=== PATIENT | male | born 1955 | race Caucasian/White ===

== ENCOUNTER 2016-11-20 08:50 | Inpatient (IN) | payer OTHER ==
[2016-11-10 10:36] VITALS: BMI 42.0
[2016-11-10 11:29] LABS: BASO % 0.4 %; BASO ABS # 0.03 K/uL (0-0.2); COMPLETE YES; EOS % 1.9 %; HEMATOCRIT 45.8 % (42-52); IG% 0.1 %; LYMPH % 21.3 %; LYMPH ABS # 1.72 K/uL (1.2-3.4); MEAN CELL VOLUME 88.6 fL (80-100); MEAN CORPUSCULAR HEMOGLOBIN 31.1 pg (25-34); MEAN CORPUSCULAR HGB CONC 35.2 g/dl (32-36); NEUT % 67.3 %; PLATELET COUNT 221 K/uL (130-400); RED BLOOD COUNT 5.17 M/uL (4.7-6.1); WHITE BLOOD COUNT 8.08 K/uL (4.8-10.8)
--- NOTE | 2016-11-10 11:42 | DIAGNOSTIC IMAGING REPORT ---
CHEST PREADMISSION(PA/LAT) CLINICAL HISTORY: Preoperative chest COMPARISON STUDY: No previous studies for comparison. FINDINGS: The heart is at the upper limits of normal in size. There is no failure. There is no lobar consolidation. There are right perihilar and left basilar atelectatic changes. A rounded density in the right hilar region, likely represents a vascular summation[ IMPRESSION: 1. No evidence of failure. No evidence of acute parenchymal consolidation 2. Minor basilar atelectasis 3. Rounded opacity at the right hilar level, likely representing a vascular summation Electronically signed by: Zachary Foreman M.D. 11/10/2016 11:40 AM Dictated Date/Time: 11/10/2016 11:39 AM
[2016-11-10 11:53] LABS: BUN/CREATININE RATIO 17.7 (10-20); CALCIUM 8.9 mg/dl (8.5-10.1); CREATININE 1.5 mg/dl (0.60-1.40); POTASSIUM 3.8 mmol/L (3.5-5.1)
[2016-11-10 11:57] LABS: PARTIAL THROMBOPLASTIN RATIO 1.1; PROTHROMBIN TIME (PATIENT) 10.8 SECONDS (9.0-12.0)
[2016-11-10 17:10] LABS: URINE APPEARANCE CLEAR (CLEAR); URINE COLOR YELLOW; URINE NITRITE NEG (NEG); URINE SPECIFIC GRAVITY 1.015 (1.000-1.030); UROBILINOGEN NEG (NEG)
[2016-11-10 17:32] LABS: URINE BILIRUBIN NEG (NEG)
[2016-11-10 21:07] LABS: MANUAL MICROSCOPIC REQUIRED? NO; REVIEW REQ? NO
--- NOTE | 2016-11-19 09:19 | HISTORY & PHYSICAL EXAMINATION ---
DATE OF ADMISSION: 11/20/2016 CHIEF COMPLAINT: Major complaint of back and lower extremity difficulty with weakness as well, pain 1 year in duration, worsening over time, failing conservative measures, associated weakness and occasional fall, gait abnormality with progressive neurological deficit. He has a disc herniation far lateral L2-3 with invagination on the 2 and 3 nerve roots. He is being preoped for lumbar spine decompression, possible fusion with Globus transition technology which is motion preserving technology, possibly interbody L2-3. PAST MEDICAL HISTORY: Positive for obesity, spine problems, prostate enlargement. No anesthesia issues, no cancer, liver, kidney negative. No diabetes mellitus, high cholesterol. PAST SURGICAL HISTORY: Disc removed from lumbar spine in 1983. ALLERGIES: SIMVASTATIN. MEDICATIONS: Aspirin, gabapentin, Advil, hydrochlorothiazide, testosterone gel, Ambien, Zetia. SOCIAL HISTORY: Nonsmoker, not ETOH user. Employed, works on a daily basis, mostly sedentary employment. REVIEW OF SYSTEMS: Denies any fever, sweats, chills. No bowel or bladder issues. Denies any blurred vision, double vision, tinnitus or vertigo. Denies head trauma. Denies asthma, wheezing, shortness of breath. Denies palpitations, chest pain. Denies nausea, vomiting, urgency, frequency, dysuria. Admits to back and lower extremity difficulty as described. OBJECTIVE: GENERAL: He is alert, oriented. He is 5 feet 11. He is 280 pounds. VITAL SIGNS: Blood pressure 130/80, pulse of 80, respiratory rate 16, temperature 97.4. HEAD, EYES, EARS, NOSE, AND THROAT: Pupils react to light and accommodation. Ear, nose and throat clear. CARDIAC: Normal S1, S2, no S3. LUNGS: Clear to auscultation. No rales, rhonchi or wheezing. ABDOMEN: Soft, nontender, bowel sounds present. NEUROLOGIC: Slight weakness to the lower extremities. Slight fasciculations, slight quadriceps decrease as well. Images demonstrate disc herniation lumbar spine far lateral at L2-L3. DISPOSITION: Includes lumbar spine laminectomy and discectomy, instrumentation possible tomorrow the at L2-L3 lumbar spine.
[~2016-11-20] VITALS: Ht 177.8 cm; Wt 134.4 kg
[~2016-11-20 08:50] MED LIST: ASPI81TA28 PO; CEFAZOLIN 3000 MG/65 ML D5W 65 ML IV SCH; EZET10TA63 PO; GABA-113 PO; HYDR-4079 PO; IBUP-1277 PO; LACTATED RINGER'S 1000ML IV SCH; LORA-741 PO; NSS 1000ML IV SCH; SILD1TAB39 PO; TERA5CAP PO; TRIAMTERENE HCTZ PO; ZOLP10TA PO
[2016-11-20 09:25] VITALS: BP 122/77; PULSE 20; TEMP 36.4; O2SAT 92; Ht 177.8 cm; Wt 134.4 kg
[2016-11-20] MEDS ORDERED: NEOSTIGMINE METHYLSULFATE 5 MG/5 ML SYR ONE (09:53)
[2016-11-20] MEDS ORDERED: FENTANYL CITRATE INJ 50 MCG/1 ML 2 ML VIAL ONE (09:53)
[2016-11-20] MEDS ORDERED: ROCURONIUM BROMIDE 10 MG/ML 5 ML VIAL ONE (09:53)
[2016-11-20] MEDS ORDERED: LIDOCAINE HCL 2% 2 ML VIAL (20MG/ML) ONE (09:53)
[2016-11-20] MEDS ORDERED: DEXAMETHASONE SOD INJ 4 MG/ML VIAL ONE (09:53)
[2016-11-20] MEDS ORDERED: GLYCOPYRROLATE INJ 0.2 MG/ML VIAL ONE (09:53)
[2016-11-20] MEDS ORDERED: ONDANSETRON INJ 2 MG/ML 2 ML VIAL ONE (09:53)
[2016-11-20] MEDS ORDERED: PROPOFOL IV EMULSION 10 MG/ML 20 ML VIAL IV ONE (09:53)
[2016-11-20] MEDS ORDERED: MIDAZOLAM HCL 1 MG/ML 2ML VIAL ONE (09:53)
[2016-11-20] MEDS ORDERED: BACITRACIN 50000 UNIT VIAL ONE (12:40)
[2016-11-20] MEDS ORDERED: THROMBIN FOR SOLN 20000 UNIT KIT ONE ×2 (12:40→13:09)
[2016-11-20] MEDS ORDERED: BUPIVACAINE/EPINEPHRINE 0.5% MPF 1:200,000 30 ML VIAL ONE ×2 (12:40→12:41)
[2016-11-20] MEDS ORDERED: VANCOMYCIN HCL 1000MG/20ML VIAL ONE (12:40)
[2016-11-20] MEDS ORDERED: GELATIN SPONGE SZ 100 ONE (12:40)
--- NOTE | 2016-11-20 12:53 | History & Physical Bridge Note ---
H&P Re-Evaluation Bridge Note: I have examined the patient, reviewed the History & Physical and in the interval since the performance of the History & Physical I have noted the following changes of clinical significance: No changes noted
[2016-11-20] MEDS ORDERED: CISATRACURIUM BESYLATE IV SOLN 2 MG/ML 10 ML VIAL ONE (13:48)
[2016-11-20] MEDS ORDERED: SUCCINYLCHOLINE CHLORIDE 20 MG/ML 10 ML VIAL IV ONE (14:07)
[2016-11-20] MEDS ORDERED: HYDROmorphone INJ 2 MG/ML SYR/VIAL ONE (14:51)
[2016-11-20] MEDS ORDERED: EpHEDrine SULFATE INJ 50 MG/ML AMP IV PRN (15:00)
[2016-11-20] MEDS ORDERED: FLUMAZENIL 0.1 MG/1 ML 10 ML VIAL IV PRN (15:00)
[2016-11-20] MEDS ORDERED: ONDANSETRON INJ 2 MG/ML 2 ML VIAL IV PRN ×2 (15:00→15:45)
[2016-11-20] MEDS ORDERED: LABETALOL HCL IV 5 MG/ML 20ML IV PRN (15:00)
[2016-11-20] MEDS ORDERED: ATROPINE SULFATE 0.1 MG/ML 5ML SYR IV PRN (15:00)
[2016-11-20] MEDS ORDERED: NALOXONE HCL 0.4 MG/1 ML VIAL/CARP IV PRN ×2 (15:00→16:00)
[2016-11-20] MEDS ORDERED: PROMETHAZINE HCL INJ 12.5 MG in SODIUM CHLORIDE 0.9% 50ML 50 ML IV PRN ×2 (15:00→15:45)
--- NOTE | 2016-11-20 15:13 | DIAGNOSTIC IMAGING REPORT ---
LUMBAR SPINE, INTRAOPERATIVE FLUOROSCOPY HISTORY: L2-L3 laminectomy and fusion. FLUOROSCOPY TIME: 11 seconds. FINDINGS: Intraoperative fluoroscopy was provided for the lumbar spine. A single fluoroscopic spot image was obtained. Exact level difficult to determine due to the spot image but likely represents the L2-L3 level where there are pedicle screws for a posterior decompression and fusion IMPRESSION: Fluoroscopy provided for a posterior decompression and fusion at L2-L3. Electronically signed by: Artur Mclean M.D. 11/20/2016 3:11 PM Dictated Date/Time: 11/20/2016 3:11 PM
[2016-11-20] MEDS ORDERED: SODIUM CHLORIDE 0.9% 1000ML 1,000 ML IV SCH ×2 (15:42→15:49)
[2016-11-20] MEDS ORDERED: METOCLOPRAMIDE HCL INJ 5 MG/ML 2 ML VIAL IV PRN (15:45)
[2016-11-20] MEDS ORDERED: LORAZEPAM 1 MG TAB PO PRN (15:45)
[2016-11-20] MEDS ORDERED: LORAZEPAM INJ 1 MG in SYRINGE 0 ML IV PRN (15:45)
[2016-11-20] MEDS ORDERED: MAGNESIUM HYDROXIDE SUSP 30 ML UDC PO PRN (15:45)
[2016-11-20] MEDS ORDERED: ACETAMINOPHEN 325 MG TAB PO PRN (15:45)
--- NOTE | 2016-11-20 15:45 | [facility] Post Operative Brief Note ---
Immediate Operative Summary Operative Date Nov 20, 2016. Pre-Operative Diagnosis disc herniation lumbar spine far lateral at L2-L3 Post-Operative Diagnosis disc herniation lumbar spine far lateral at L2-L3 Procedure(s) Performed Laminectomy L2-L3 with Globus transition motion preserving technology Surgeon Dr. Mckenzie Spa Consultant Surgeon(s) AC [place] Estimated Blood Loss 300ML Specimens none per surgeon Complication(s) None Disposition Recovery Room / PACU
[2016-11-20] MEDS ORDERED: HYDROmorphone HCL 0.5MG/ML 50 ML CASSETTE ONE (15:53)
[2016-11-20] MEDS ORDERED: LORAZEPAM 0.5 MG TAB PO SCH (16:00)
[2016-11-20] MEDS ORDERED: SILDENAFIL CITRATE 20 MG TAB PO SCH (16:00)
[2016-11-20] MEDS: HYDROmorphone INJ 1 MG/ML SYR IV PRN ×4 (16:00→16:18)
--- NOTE | 2016-11-20 16:34 | OPERATIVE REPORT ---
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 POSTOPERATIVE DIAGNOSES: Same. PROCEDURES: Lumbar spine laminectomy, L2-L3; diskectomy L2-L3; instrumentation L2-L3 and fusion, L2-L3, lumbar spine. SURGEON: Dr. Riley Mckenzie. ERP PROJECT MANAGER: AC Hobbs COMPLICATIONS: Zero. BLOOD LOSS: 300. IMPLANTS USED: By the Liftago. Sponge and needle count correct at the close of the procedure. DESCRIPTION OF PROCEDURE: The patient was taken to the operating room, a general intubated, anesthetic provided to the patient, placed prone, shaved, scrubbed, prepped and draped sterile. We used C-arm guidance. We came right into the L2-L3 interval, dissecting the soft tissue in the same plane. We were putting in deep self-retaining retractor. He is a big individual and quite overweight. The depth was quite significant. We did a laminectomy to L2-L3 interval. We preserved all structures on the right hand side. We decompressed all structures on the left hand side. We found the disk and we did a formal diskectomy. I worked very diligently protecting the nerve root, getting any type of disk material free and completed the foraminotomy. I tried to bring the disk material into the interspace, so I could do a complete diskectomy. I was pleased with the decompression at this point in time. We then instrumented the spine, safely getting pedicle screws at 2 and pedicle screws at 3 of the lumbar elements. I was pleased with the positioning and depth and length of the screw fixation. Instead of doing a solid anitha, we used a Globus transition type system, which gave it a little flexibility. This was placed on both sides. Locked and irrigated. We did bone graft out over the left hand side. I felt that it may give him some minor stability with bone grafting at this level. We then irrigated and closed over Hemovac drain and vancomycin powder, staple gun on the skin. Sterile dressing applied. The patient returned to PACU stable. No apparent complications with the surgical procedure. Sponge and needle count correct. I attest to the content of the Intraoperative Record and any orders documented therein. Any exceptio ns are noted below.
[2016-11-20 17:15] VITALS: BP 110/70; PULSE 61; TEMP 37.2; O2SAT 95
--- NOTE | 2016-11-20 17:15 | Anesthesiology Progress Note ---
Anesthesia Post Op Note Date & Time Nov 20, 2016 at 17:15 Vital Signs Pain Intensity: 6 Vital Signs Past 12 Hours Date Time Temp Pulse Resp B/P Pulse Ox O2 Delivery O2 Flow Rate FiO2 11/20/16 17:00 55 13 115/61 94 Nasal Cannula 4 11/20/16 16:45 37.1 61 17 122/65 96 Nasal Cannula 4 11/20/16 16:35 56 12 119/71 95 Nasal Cannula 4 11/20/16 16:25 59 13 128/78 98 Nasal Cannula 4 11/20/16 16:15 67 12 136/77 98 Nasal Cannula 4 11/20/16 16:05 68 24 147/73 97 Mask 10 11/20/16 15:55 70 13 152/92 98 Mask 10 11/20/16 15:48 36.9 66 16 143/81 98 Mask 10 11/20/16 09:25 36.4 20 20 122/77 92 Room Air Notes Mental Status: alert / awake / arousable, participated in evaluation Pt Amnestic to Procedure: Yes Nausea / Vomiting: adequately controlled Pain: adequately controlled Airway Patency, RR, SpO2: stable & adequate BP & HR: stable & adequate Hydration State: stable & adequate Anesthetic Complications: no major complications apparent
[2016-11-20] MEDS: HYDROmorphone HCL 0.5MG/ML 50 ML CASSETTE IV PRN ×2 (17:18→23:02)
[2016-11-20 17:42] VITALS: BP 118/67; PULSE 65; TEMP 37; O2SAT 98
[2016-11-20 18:15] VITALS: BP 119/72; PULSE 69; TEMP 36.8; O2SAT 94
[2016-11-20 19:16] VITALS: BP 115/67; PULSE 73; TEMP 36.7; O2SAT 95
[2016-11-20] MEDS: KETOROLAC TROMETHAMINE 30 MG/ML VIAL IV SCH (19:48)
--- NOTE | 2016-11-20 20:24 | Family Medicine Progress Note ---
Progress Note Date of Service Nov 20, 2016. Subjective Pt evaluation today including: conversation w/ patient, conversation w/ family , chart review, lab review The patient was seen and examined at bedside. at bedside reports that the pt's oxygen saturation dips into the 70s and 80s when the patient is sleeping. Patient is complaining of back pain - without any radicular complaints. Patient is resting comfortably in bed. Eating well. Patient has a soni catheter draining yellow urine. Plan of care was described to the patient and SO and all questions were answered. Constitutional: No chills, No fever Respiratory: No cough, No shortness of breath, No sputum, No wheezing Cardiovascular: No chest pain Objective Physical Exam General Appearance: WD/WN, no apparent distress, + obese Respiratory/Chest: chest non-tender, lungs clear, normal breath sounds, no respiratory distress, no accessory muscle use Cardiovascular: regular rate, rhythm, no edema, no gallop, no JVD, no murmur Abdomen: normal bowel sounds, non tender, soft, no organomegaly, + pertinent finding Extremities: normal range of motion, non-tender, no pedal edema Neurologic/Psychiatric: no motor/sensory deficits, alert, normal mood/affect, oriented x 3 Assessment and Plan Pt is a 61M with a PMHx of Menieres disease, disc herniation and obesity status post Lumbar Spine Decompression on 11/20/[address] Mckenzie. Lumbar Spine Decompression c/w Hydromorphine 1mg Q3H + 1.5mg IV Q3H PRN for breakthrough. c/w Gabapentin 900mg TID. c/w Cefazolin and Vanco. Consider discontinuing on discharge. Decreased oxygen Saturation while sleeping - According to pt snores, has constant apneic episodes at night with gasping. Has never been tested for sleep apnea. - CPAP initial set up was ordered. Meniere's Disease - c/w Triamcinolone tomorrow AM. HLD - c/w ezetemibe c/w Aspirin 81mg daily HTN - c/w HCTZ 25mg daily. BPH - c/w Terazosin Anxiety - c/w Ativan 1mg Q6H PRN DVT Proph: SCDs Dispo: Full Code Resident Physician Supervision Note: I interviewed and examined the patient. Discussed with Dr. Paz and agree with findings and plan as documented in the note. Any exceptions or clarifications are listed here: None Documented By: Tera Garcia feeling OK. no sob. notes that current breathing is typical for him when he sleeps - notes ongoing for years but recently she was getting more worried that he'd need evaluated for SANJANA. vitals noted, nad breathing unlabored - awakens then falls asleep, snores some, no pallor or icterus a/p snoring - strongly suspect SANJANA. meniere's - home meds (will have to hold diuretics if any sign of volume instability - but none thus far) otherwise as above Resident Involvement: Resident Care Provided Care Provided: Adult Hospital Medicine
[2016-11-20] MEDS ORDERED: TRIAMTERENE HCTZ PO SCH (21:00)
[2016-11-20] MEDS ORDERED: ZOLPIDEM TARTRATE 10 MG TAB PO SCH (21:00)
[2016-11-20] MEDS ORDERED: TRIAMTERENE 50 MG CAP PO SCH (21:00)
[2016-11-20] MEDS: EZETIMIBE 10MG TAB PO SCH (21:04)
[2016-11-20] MEDS: GABAPENTIN 300 MG CAP PO SCH (21:04)
[2016-11-20] MEDS: ASPIRIN 81 MG ECTAB PO SCH (21:04)
[2016-11-20] MEDS: CEFAZOLIN IV 2,000 MG in DEXTROSE 5% 50ML 50 ML IV SCH (22:08)
[2016-11-20 22:55] VITALS: BP 121/73; PULSE 67; TEMP 36.6; O2SAT 96
[2016-11-21] VITALS (8 sets, daily range): BP systolic 104–132; BP diastolic 57–78; PULSE 64–81; TEMP 36.5–37.2; O2SAT 90–97
[2016-11-21] MEDS: KETOROLAC TROMETHAMINE 30 MG/ML VIAL IV SCH ×2 (01:51→02:00)
[2016-11-21] MEDS: CEFAZOLIN IV 2,000 MG in DEXTROSE 5% 50ML 50 ML IV SCH ×2 (05:36→13:53)
[2016-11-21] MEDS ORDERED: BISACODYL 5 MG TABEC PO PRN (06:00)
[2016-11-21] MEDS ORDERED: DC PCA ONE (06:00)
[2016-11-21] MEDS ORDERED: BISACODYL 10 MG SUPP PR PRN (06:00)
[2016-11-21] MEDS ORDERED: HYDROmorphone INJ 1 MG/ML SYR IV PRN (06:00)
[2016-11-21] MEDS ORDERED: OXYCODONE/ACETAMINOPHEN 5-325 TAB PO PRN (06:00)
[2016-11-21] MEDS ORDERED: HYDROmorphone INJ 2 MG/ML SYR/VIAL IV PRN (06:00)
[2016-11-21 06:18] LABS: HEMATOCRIT 41.8 % (42-52); MEAN CORPUSCULAR HEMOGLOBIN 29.7 pg (25-34); MEAN CORPUSCULAR HGB CONC 33.7 g/dl (32-36); MEAN PLATELET VOLUME 10.4 fL (7.4-10.4); PLATELET COUNT 232 K/uL (130-400); RED BLOOD COUNT 4.75 M/uL (4.7-6.1); WHITE BLOOD COUNT 14.67 K/uL (4.8-10.8)
[2016-11-21 06:45] LABS: BUN/CREATININE RATIO 22.9 (10-20); CALCIUM 8.1 mg/dl (8.5-10.1); CREATININE 1.7 mg/dl (0.60-1.40); POTASSIUM 4.6 mmol/L (3.5-5.1)
[2016-11-21] MEDS ORDERED: NURSING VERBAL MED ORDER ONE (07:15)
--- NOTE | 2016-11-21 07:45 | ORTHOPEDICS PROGRESS NOTE ---
DATE: 11/21/2016 Alert, oriented, minimal complaints of pain, some soreness, no radicular pain. Vital signs stable. 41.8 hematocrit. Moves extremities. ASSESSMENT: Status post lumbar spine surgery. Doing well short run. DISPOSITION: Instructions, precautions, education. Up and ambulatory today. Potentially home tomorrow the .
--- NOTE | 2016-11-21 07:52 | Progress Note ---
Subjective Date of Service: Nov 21, 2016. Subjective pt feels well no active complaints, has concerns that he may have sleep apnea Review of Systems Constitutional: No chills, No fever Cardiac: No chest pain, No edema Abdomen: No diarrhea, No nausea, No pain, No vomiting Musculoskeletal: + muscle pain Male : No dysuria, No urinary frequency Psychiatric: No anhedonism, No depression symptoms Objective Vital Signs Date Time Temp Pulse Resp B/P Pulse Ox O2 Delivery O2 Flow Rate FiO2 11/21/16 07:05 Room Air 11/21/16 05:39 81 91 Room Air 11/21/16 04:05 36.8 64 18 132/78 97 Nasal Cannula 4.0 11/21/16 00:40 Nasal Cannula 4.0 11/20/16 22:55 36.6 67 18 121/73 96 Nasal Cannula 4.0 11/20/16 19:16 36.7 73 16 115/67 95 Nasal Cannula 4.0 11/20/16 18:15 36.8 69 18 119/72 94 Nasal Cannula 4.0 11/20/16 17:42 37.0 65 14 118/67 98 Nasal Cannula 4.0 11/20/16 17:15 95 Nasal Cannula 4.0 11/20/16 17:15 95 Nasal Cannula 4.0 11/20/16 17:15 37.2 61 18 110/70 95 Nasal Cannula 4.0 11/20/16 17:00 55 13 115/61 94 Nasal Cannula 4 11/20/16 16:45 37.1 61 17 122/65 96 Nasal Cannula 4 11/20/16 16:35 56 12 119/71 95 Nasal Cannula 4 11/20/16 16:25 59 13 128/78 98 Nasal Cannula 4 11/20/16 16:15 67 12 136/77 98 Nasal Cannula 4 11/20/16 16:05 68 24 147/73 97 Mask 10 11/20/16 15:55 70 13 152/92 98 Mask 10 11/20/16 15:48 36.9 66 16 143/81 98 Mask 10 11/20/16 09:25 36.4 20 20 122/77 92 Room Air Physical Exam General Appearance: WD/WN, + mild distress Neck: supple, no JVD Respiratory/Chest: chest non-tender, lungs clear, normal breath sounds Cardiovascular: regular rate, rhythm, no murmur Abdomen: normal bowel sounds, non tender, soft Extremities: no pedal edema, no calf tenderness Neurologic/Psychiatric: alert, oriented x 3 Laboratory Results Last 24 Hours Test 11/21/16 06:08 White Blood Count 14.67 K/uL Red Blood Count 4.75 M/uL Hemoglobin 14.1 g/dL Hematocrit 41.8 % Mean Corpuscular Volume 88.0 fL Mean Corpuscular Hemoglobin 29.7 pg Mean Corpuscular Hemoglobin Concent 33.7 g/dl RDW Standard Deviation 42.4 fL RDW Coefficient of Variation 13.1 % Platelet Count 232 K/uL Mean Platelet Volume 10.4 fL Sodium Level 138 mmol/L Potassium Level 4.6 mmol/L Chloride Level 103 mmol/L Carbon Dioxide Level 23 mmol/L Anion Gap 12.0 mmol/L Blood Urea Nitrogen 39 mg/dl Creatinine 1.70 mg/dl Est Creatinine Clear Calc Drug Dose 64.6 ml/min Estimated GFR () 50.0 Estimated GFR (Non- 43.2 BUN/Creatinine Ratio 22.9 Random Glucose 136 mg/dl Calcium Level 8.1 mg/dl Assessment and Plan Pt is a 61M with a PMHx of Menieres disease, disc herniation status post Lumbar Spine Decompression on 11/20/[address] Mckenzie. Decreased oxygen Saturation while sleeping - According to pt snores, has constant apneic episodes at night with gasping. Has never been tested for sleep apnea. - CPAP initial set up was ordered, maybe from anesthesia, will follow and consider nocturnal hypoxia testing. Meniere's Disease Triamterine HTN HCTZ 25mg daily. BPH -Terazosin DVT Proph: SCDs
--- NOTE | 2016-11-21 08:09 | Anesthesiology Progress Note ---
Anesthesia Post Op Note Date & Time Nov 21, 2016 at 08:08 Vital Signs Pain Intensity: 5.0 Vital Signs Past 12 Hours Date Time Temp Pulse Resp B/P Pulse Ox O2 Delivery O2 Flow Rate FiO2 11/21/16 07:05 Room Air 11/21/16 05:39 81 91 Room Air 11/21/16 04:05 36.8 64 18 132/78 97 Nasal Cannula 4.0 11/21/16 00:40 Nasal Cannula 4.0 11/20/16 22:55 36.6 67 18 121/73 96 Nasal Cannula 4.0 Notes Mental Status: alert / awake / arousable, participated in evaluation Pt Amnestic to Procedure: Yes Nausea / Vomiting: adequately controlled Pain: adequately controlled Airway Patency, RR, SpO2: stable & adequate BP & HR: stable & adequate Hydration State: stable & adequate Anesthetic Complications: no major complications apparent
[2016-11-21] MEDS: POLYETHYLENE (MIRALAX) 17 GM PACK PO SCH (08:44)
[2016-11-21] MEDS: OXYCODONE/ACETAMINOPHEN 5-325 TAB PO PRN ×3 (08:45→21:21)
[2016-11-21] MEDS: GABAPENTIN 300 MG CAP PO SCH ×3 (08:45→21:22)
[2016-11-21] MEDS ORDERED: TRIAMTERENE 50 MG CAP PO SCH (09:00)
[2016-11-21] MEDS ORDERED: HYDROCHLOROTHIAZIDE 25 MG TAB PO SCH (09:00)
[2016-11-21] MEDS: TRIAMTERENE PO SCH ×2 (10:03→21:23)
[2016-11-21] MEDS: HCTZ PO SCH ×2 (10:03→21:23)
[2016-11-21] MEDS: EZETIMIBE 10MG TAB PO SCH (21:22)
[2016-11-21] MEDS: ASPIRIN 81 MG ECTAB PO SCH (21:22)
[2016-11-22] MEDS: OXYCODONE/ACETAMINOPHEN 5-325 TAB PO PRN ×2 (04:35→09:57)
[2016-11-22 06:02] LABS: HEMATOCRIT 36.2 % (42-52); MEAN CELL VOLUME 87.4 fL (80-100); MEAN CORPUSCULAR HGB CONC 34.3 g/dl (32-36); MEAN PLATELET VOLUME 10.5 fL (7.4-10.4); PLATELET COUNT 184 K/uL (130-400); RED BLOOD COUNT 4.14 M/uL (4.7-6.1); WHITE BLOOD COUNT 12.14 K/uL (4.8-10.8)
[2016-11-22 06:36] LABS: BUN/CREATININE RATIO 23.7 (10-20); CALCIUM 7.7 mg/dl (8.5-10.1); CREATININE 1.4 mg/dl (0.60-1.40); POTASSIUM 3.4 mmol/L (3.5-5.1)
--- NOTE | 2016-11-22 07:37 | Discharge Instructions ---
Discharge Instructions Admission Reason for Admission: Spinal Stenosis, Lumbar Iv Disc Displacement Discharge Discharge Diagnosis / Problem: stenosis Discharge Goals Goal(s): Improve function Activity Recommendations Activity Limitations: as noted below Lifting Limitations: until after follow-up appointment Exercise/Sports Limitations: until after follow-up appointment May Resume Sexual Activity: after follow-up appointment Shower/Bathe: keep incision dry . Instructions / Follow-Up Instructions / Follow-Up MEDICATIONS: Please take your prescriptions as instructed at your pre-op appointment. SPECIAL CARE: The following information is intended to answer some of the common questions and concerns regarding your surgery. Each patient is an individual and receives individual counselling throughout the course of treatment, from diagnosis to surgery all the way through recovery. What follows is not an exhaustive list, but should be a useful guide to some of the common questions and concerns patients have regarding their surgeries. These are not provided to keep you from calling us; rather, they give you something accurate and concrete to reference as you recover from your procedure. If you need us, we are available to you. As always, if you are not sure about something, call us at [phone]. MEDICAL EMERGENCIES: For these conditions, call 911 or go to your local hospital-based Emergency Department - not [facility] or equivalent. * Paralysis * Severe chest pain or difficulty breathing * Swelling or redness of either leg Spine procedures can be rather complex and though complications are rare, they do occur. In such cases, effective advice regarding emergency situations cannot always be addressed over the telephone. You may be referred to the emergency department for more effective management of your problem. Activity Limitations: It is important to give your body time to heal, so please limit your activities : * In general, don't do anything that moves your spine too much. You should avoid contact sports, twisting or heavy lifting while you recover. * 5-10 pounds is all you should attempt to lift. * You should not plan on driving for approximately 3 weeks and you should avoid traveling more than 30-45 minutes at a time. Longer trips should be broken down with walking breaks spaced appropriately. * Physical therapy is not usually required. * Walking and good posture practices will help you recover and regain your function. * Avoid straining or sudden changes in position. * In general, the goal is to take it easy and recover. Don't cause any new problems. Just relax. Showers: * Do not take a bath, use a Jacuzzi or hot tub or otherwise submerge your incision. * It is usually safe to take a shower 4-5 days after your surgery. * Your incision does not require any special creams or ointments. * Simply clean it with soap and water, dry and re-dress with a clean bandage afterwards. Incision: * Keep incision clean, dry and protected until your first follow-up appointment. * Some amount of drainage and redness is normal. Any drainage should be fairly clear and not have a foul odor. * If you feel anything is wrong or you have excessive drainage, please call us. * Your stitches and kim will be removed 10-14 days after your surgery. At the time of your first post-op visit. * Neck surgeries are typically closed with a suture underneath the skin. The steri-strips over the incision should be maintained until we see you in the office. Bracing: * You may be provided with a back or neck brace to encourage good posture and prevent injury. It will remind you not to do too much as you heal and will alert others to the fact that you have had a surgery. * Back braces may be removed for showers and when you are resting at home. They must be worn when you are walking around for any period of time or for travel. * For neck surgery, you will likely be provided with two cervical collars. The soft collar (Underwood or foam rubber) is worn most commonly throughout the day and while sleeping. The plastic collar (provided at the hospital) is for showering/bathing. * Except while eating, collars should remain in place. More specifically, bracing is provided for a purpose and should be worn. * Please obtain your brace or collars prior to your operation and bring them to the hospital with you on the day of surgery. * You should also bring your collars to your post-op appointment with Dr. Mckenzie. You should always take good care of your body and practice healthy habits, especially following surgery. You should: * Follow your doctor's treatment plan * Sit and stand properly with good posture (ears over shoulders, shoulders over hips) Don't slouch * Learn to lift correctly * Exercise regularly (low-impact aerobic exercise is especially good, but check with your doctor first) * Generally, be up and walking for 5-10 minutes at a time at least 3-4 times per day from the day you get home * Increasing walking to tolerance until you can walk for 20-30 minutes at a time * Attain and maintain a healthy body weight * Eat healthy foods ( a well-balanced, low-fat diet rich in fruits and vegetables) and get enough calcium * Avoid excessive use of alcohol When to call our office - If you notice any of the following: * Increased pain not relieve by pain medicine * Fevers greater then 100 degrees F, chills or flu symptoms * Increased redness around incision * Drainage from the incision that is not clear * Any foul smelling drainage * Swelling or fluid collection beneath the skin Miscellaneous: * In the hospital, you may be given a walker or cane for support while walking. These are temporary needs and are intended to prevent injuries due to falls. You may discontinue them when you feel strong and steady enough on your feet. * Sleep in a comfortable position. We find that many patients find a lounge chair or recliner with several pillows to be beneficial in the early post-operative period. * The support stockings should be used for 7-10 days and may be discontinued when you are back to walking more and conducting usual household activities. No problem is insignificant. We are here to help you and get you well. Contact us at [phone]. Definitions: Foraminotomy: If part of the disc or a bone spur (osteophyte) is pressing on a nerve as it leaves the vertebra (through an exit called the foramen), a foraminotomy may be done. Otomy means "to make an opening." A foraminotomy is making the opening of the foramen larger, so the nerve can exit without being compressed. Laminotomy: Similar to the foraminotomy, a laminotomy makes a larger opening, this time in your bony plate protecting your spinal canal and spinal cord (the lamina). The lamina may be pressing on your nerve, so the surgeon may make more room for the nerves using a laminotomy. Laminectomy: Sometimes, a laminotomy is not sufficient. The surgeon may need to remove all or part of the lamina. This procedure is called a laminectomy. This can often be done at many levels without any harmful effects. Current Hospital Diet Patient's current hospital diet: Regular Diet Discharge Diet Recommended Diet: Regular Diet Fluid Restriction: None Procedures Procedures Performed: Laminectomy L2-L3 with Globus transition motion preserving technology Pending Studies Studies pending at discharge: no Medical Emergencies . Who to Call and When: Medical Emergencies: If at any time you feel your situation is an emergency, please call 911 immediately. . Non-Emergent Contact Non-Emergency issues call your: Surgeon Call Non-Emergent contact if: you have any medication questions . "Provider Documentation" section prepared by Riley Mckenzie. VTE Core Measure Inpt VTE Proph given/why not?: Treatment not indicated
[2016-11-22 08:17] VITALS: BP 114/72; PULSE 72; TEMP 37; O2SAT 93
[2016-11-22 08:36] VITALS: BP 114/72; PULSE 72; TEMP 37; O2SAT 93
[2016-11-22] MEDS: POLYETHYLENE (MIRALAX) 17 GM PACK PO SCH (09:00)
[2016-11-22] MEDS: GABAPENTIN 300 MG CAP PO SCH (09:56)
[2016-11-22] MEDS ORDERED: OXGN (10:26)
[2016-11-22 10:27] VITALS: O2SAT 93
--- NOTE | 2016-11-22 11:16 | DISCHARGE SUMMARY ---
DATE OF DISCHARGE: 11/22/2016. SUBJECTIVE: Moderate complaints of back pain, some lower extremity difficulty. Denies fevers, sweats or chills. OBJECTIVE: Vital signs stable, alert, oriented. Hematocrit 36.2. Wound clean. ASSESSMENT: Status post lumbar spine surgery. DISPOSITION: We will get Mr. Sánchez home today. Change his dressing. He has medications on the chart. He has a walker with wheels as well. He has instructions on the chart and from our office. We will get him home later today. We should see him back for follow-up examination in 10-12 days in the office. He is to be careful with bending, stooping, and lifting.
--- NOTE | 2016-11-22 17:21 | Progress Note ---
Subjective Date of Service: Nov 22, 2016. Subjective pt is about to be discharged discussed the nocturnal oxymetry study and RX hs oxygen, recommended to get outpt eval for possible sleep study no other questions Review of Systems Constitutional: No chills, No fever Respiratory: No cough, No dyspnea on exertion, No shortness of breath Cardiac: No chest pain, No edema Abdomen: No nausea, No pain, No vomiting Objective Vital Signs Date Time Temp Pulse Resp B/P Pulse Ox O2 Delivery O2 Flow Rate FiO2 11/22/16 10:27 93 Room Air 11/22/16 08:36 37.0 72 16 93 Room Air 11/22/16 08:17 37.0 72 16 114/72 93 Room Air 11/22/16 07:25 Room Air 11/22/16 00:15 Room Air 11/21/16 23:30 37.2 75 18 108/57 94 Room Air 11/21/16 20:01 37.1 73 16 110/65 94 Room Air 11/21/16 19:50 Room Air Physical Exam General Appearance: WD/WN, + mild distress Neck: supple, no JVD Respiratory/Chest: chest non-tender, lungs clear Cardiovascular: regular rate, rhythm, no murmur Abdomen: normal bowel sounds, non tender, soft Extremities: no pedal edema, no calf tenderness Laboratory Results Last 24 Hours Test 11/22/16 05:35 White Blood Count 12.14 K/uL Red Blood Count 4.14 M/uL Hemoglobin 12.4 g/dL Hematocrit 36.2 % Mean Corpuscular Volume 87.4 fL Mean Corpuscular Hemoglobin 30.0 pg Mean Corpuscular Hemoglobin Concent 34.3 g/dl RDW Standard Deviation 42.3 fL RDW Coefficient of Variation 13.1 % Platelet Count 184 K/uL Mean Platelet Volume 10.5 fL Sodium Level 137 mmol/L Potassium Level 3.4 mmol/L Chloride Level 100 mmol/L Carbon Dioxide Level 27 mmol/L Anion Gap 10.0 mmol/L Blood Urea Nitrogen 33 mg/dl Creatinine 1.40 mg/dl Est Creatinine Clear Calc Drug Dose 78.4 ml/min Estimated GFR () 63.3 Estimated GFR (Non- 54.6 BUN/Creatinine Ratio 23.7 Random Glucose 102 mg/dl Calcium Level 7.7 mg/dl Assessment and Plan Pt is a 61M with a PMHx of Juan Carloses disease, disc herniation status post Lumbar Spine Decompression on 11/20/[address] Mckenzie. Decreased oxygen Saturation while sleeping - According to pt snores, has constant apneic episodes at night with gasping. Has never been tested for sleep apnea. -nocturnal hypoxia testing shows 21% hypoxia, will rx home oxygen, with recommendation of follow up for sleep study Meniere's Disease Triamterine HTN HCTZ 25mg daily. BPH -Terazosin DVT Proph: SCDs
== END 2016-11-22 12:09 | disposition home or self-care (01) | DRG 460 ==
LOC: ENRESERVDT → ENRESERVTM → C.ACU 08:50 → C.3E 15:48
PROVIDERS: ADMIT Orthopaedic Surgery Orthopaedic Surgery of the Spine; ATTEND Orthopaedic Surgery Orthopaedic Surgery of the Spine
PROC: 0ST20ZZ Resection of Lumbar Vertebral Disc, Open Approach (ICD-10-PCS; principal; 2016-11-20 10:35)
PROC: 0SG0071 Fusion of Lumbar Vertebral Joint with Autologous Tissue Substitute, Posterior Approach, Posterior Column, Open Approach (ICD-10-PCS; principal; 2016-11-20 10:35)
DX: M51.26 Other intervertebral disc displacement, lumbar region (principal); Z68.41 Body mass index [BMI] 40.0-44.9, adult; M48.06 Spinal stenosis, lumbar region; G47.33 Obstructive sleep apnea (adult) (pediatric); E78.5 Hyperlipidemia, unspecified; K21.9 Gastro-esophageal reflux disease without esophagitis; R73.09 Other abnormal glucose; I12.9 Hypertensive chronic kidney disease with stage 1 through stage 4 chronic kidney disease, or unspecified chronic kidney disease; N18.9 Chronic kidney disease, unspecified; F41.9 Anxiety disorder, unspecified; H81.09 Meniere's disease, unspecified ear; N40.0 Benign prostatic hyperplasia without lower urinary tract symptoms; E66.01 Morbid (severe) obesity due to excess calories; Z79.82 Long term (current) use of aspirin; Z79.891 Long term (current) use of opiate analgesic; Z79.1 Long term (current) use of non-steroidal anti-inflammatories (NSAID); Z79.899 Other long term (current) drug therapy

== ENCOUNTER → 2017-01-03 | Outpatient (CLI) | payer OTHER ==
[~2017-01-03] MED LIST changes: -CEFAZOLIN 3000 MG/65 ML D5W 65 ML IV SCH; -LACTATED RINGER'S 1000ML IV SCH; -NSS 1000ML IV SCH; +OXGN; +TRIA37.5 PO
--- NOTE | 2017-01-06 05:43 | CODING QUERY NO DIAGNOSIS ---
TREATMENT RENDERED WITHOUT A DIAGNOSIS To promote full compliance with coding requirements relating to patient care, physician participation is requested in all cases of ceramic research engineer uncertainty. Please assist us with providing a diagnosis/symptom for the test(s) below: A diagnosis/symptom was not documented on your Order. A valid diagnosis/symptom is required to bill all insurances. Please remember that we are unable to code a diagnosis of rule out, probable, possible, questionable, or suspected. DATE OF SERVICE: 01/03/17 Tests that require a diagnosis: * PSA DIAGNOSIS: Provider Signature: Date: Thank you Sabrina Oliver [facility] Information Management Once completed, please kindly fax back to [phone] For questions please call [phone]
== END | disposition home or self-care (01) ==
LOC: C.LABBC 07:39
PROVIDERS: ATTEND Urology
DX: E29.1 Testicular hypofunction (principal); N52.9 Male erectile dysfunction, unspecified; N40.1 Benign prostatic hyperplasia with lower urinary tract symptoms

== ENCOUNTER → 2017-01-26 | Outpatient (CLI) | payer OTHER ==
[2017-01-26 13:58] LABS: ALT/SGPT 36 U/L (12-78); BLOOD UREA NITROGEN 24 mg/dl (7-18); BUN/CREATININE RATIO 20.3 (10-20); CARBON DIOXIDE 26 mmol/L (21-32); CHLORIDE 105 mmol/L (98-107); CHOLESTEROL 205 mg/dl (0-200); GLUCOSE 95 mg/dl (70-99); POTASSIUM 3.9 mmol/L (3.5-5.1); SODIUM 141 mmol/L (136-145); TRIGLYCERIDES 202 mg/dl (0-150); VERY LOW DENSITY LIPOPROT CALC 40 mg/dl
[2017-01-26 14:01] LABS: CALCIUM 9.3 mg/dl (8.5-10.1)
[2017-01-26 14:02] LABS: ALB/GLOB RATIO 0.9 (0.9-2); ALKALINE PHOSPHATASE 89 U/L (45-117); AST/SGOT 31 U/L (15-37); CHOLESTEROL/HDL RATIO 4.9; HDL CHOLESTEROL 42 mg/dl; LDL CHOLESTEROL CALCULATED 123 mg/dl
[2017-01-26 14:08] LABS: ESTIMATED AVERAGE GLUCOSE 120 mg/dl; HA1C FLAG Normal (Normal)
== END ==
LOC: C.LABBC 10:22
PROVIDERS: ATTEND Family Medicine
DX: R73.03 Prediabetes (principal); E78.5 Hyperlipidemia, unspecified; Z11.59 Encounter for screening for other viral diseases

== ENCOUNTER → 2017-04-20 | Outpatient (CLI) | payer OTHER ==
[~2017-04-20] VITALS: Ht 171.5 cm; Wt 131.6 kg
[~2017-04-20] MED LIST changes: -TRIA37.5 PO
[2017-04-20 14:36] VITALS: BP 115/76; PULSE 76; Ht 171.5 cm; Wt 131.6 kg
== END | disposition home or self-care (01) ==
LOC: C.NEUR 12:43
PROVIDERS: ATTEND Internal Medicine Pulmonary Disease
DX: G47.9 Sleep disorder, unspecified (principal); G47.00 Insomnia, unspecified; R06.83 Snoring; R06.81 Apnea, not elsewhere classified; R53.83 Other fatigue

== ENCOUNTER → 2017-05-30 | Outpatient (CLI) | payer OTHER ==
--- NOTE | 2017-05-31 05:48 | SPLIT NIGHT TECHNICIAN REPORT ---
[facility] Split Night Polysomnogram - Webmethods Architect Report Study date: 05/30/2017 Referring Physician: Riley Villaseñor M.D. Name: SAMSONBRUNO Webmethods Architect: ANA Cardoza. Date of : 1955 Height: 61 years, Height 5' 7.75" Sex: Male Weight: 290.2 lbs Age: 61 Neck Circum: 17 inches BMI: Medications: 44.45 Atorvastatin Calcium 10 mg, Dicofenac Sodium 50 mg, Gabapentin 300 mg, Lorazepam 0.5 mg, Pennsaid 2%, Sildenafil Citrate 20 mg, Terazosin 5 mg, Triamterene-HCTZ 50-25 mg, Zolpidem Tartrate 10 mg Patient History 61 yr. old male here for a possible modified split night sleep study if AHI >15. Patient is in room #4. Patient complains of insomnia, loud snoring and witnessed apneas. Patients Aurora Sleepiness Scale Score is 11/24. Parameters Monitored NPSG: E1-M2, E2-M1, Fp1-M2, Fp2-M1, F3-M2, F4-M2, F4-M1, C3-M2, C4-M2, C4-M1, O1-M2, O2-M2, O2-M1, T3-M2, T4-M1, P3-M2, P4-M1, CHIN1, CHIN2, HR, EKG, Legs, PFLOW, SNOR, FLOW, CFLOW, Tidal Volume, THOR, ABDO, SpO2, PLTH, CPRESS, ETCO2 Wave, ETCO2, pH SLEEP SUMMARY DATA DIAGNOSTIC TREATMENT Lights Out: 11:00:31 PM 1:43:31 AM Lights On: 1:39:31 AM 5:17:31 AM Total Recording Time (TRT): 159.5 min. 215.0 min. Total Sleep Time (TST): 125.5 min. 108.5 min. NREM Time: 125.5 min. 104.0 min. REM Time: 0.0 min. 4.5 min. Sleep Period Time (SPT): 137.0 min. 187.5 min. Sleep Efficiency (SE): 79 % 51 % Sleep Latency: 22.0 min. 25.0 min. Arousal Index: 11.5 10.0 PAP Treatment Levels: 4, 6, 8, 10, 11 * Optimal Pressure(s) SLEEP STAGING DATA DIAGNOSTIC TREATMENT Duration (min) TST % Duration (min) TST % Stage Wake: 33.5 min. -- 106.5 min. -- WASO: 11.5 min. -- 79.0 min. -- NREM: 125.5 min. 100 % 104.0 min. 96 % Stage N1: 9.0 min. 7 % 15.0 min. 14 % Stage N2: 97.5 min. 78 % 72.5 min. 67 % Stage N3: 19.0 min. 15 % 16.5 min. 15 % REM: 0.0 min. 0 % 4.5 min. 4 % POSITIONAL DATA Event Count Index Event Count Index Supine: 45 34.6 4 53.3 Supine NREM: 45 34.6 4 53.3 Supine REM: N/A N/A N/A N/A Non-Supine: 21 26.5 47 27.1 Non-Supine NREM: 21 26.5 46 27.7 Non-Supine REM: N/A N/A 1 13.3 AROUSAL SUMMARY DATA: Event Count Index Event Count Index Apnea Arousals: 3 4.3 8 11.1 Hypopnea Arousals: 5 2.4 4 2.2 Snore Arousals: 6 2.9 1 0.6 PLM Arousals: 7 3.3 0 0.0 Non-Specific Arousals: 1 0.5 5 2.8 Total Arousals: 24 11.5 18 10.0 MYOCLONUS (PLM) Event Count Index Event Count Index PLM: 13 6.2 3 1.7 PLM AROUSAL: 7 3.3 0 0.0 PLM W/O AROUSAL 13 6.2 3 1.7 PLM W/RESP EVENT 0 0.0 0 0.0 MYOCLONUS (PLM) Event Count Index Event Count Index LM: 6 11.0 9 5.0 LM AROUSAL: 6 2.9 2 1.1 LM W/O AROUSAL LM W/RESP EVENT LM NON SPECIFIC 18 8.6 8 4.4 HEART RATE DATA DIAGNOSTIC TREATMENT Sleep (bpm): 55 55 REM (bpm): N/A 93 NREM (bpm): 91 92 Tachycardia Count: 0 0 Tachycardia Duration: 0.00 0 Bradycardia Count: 0 0 Bradycardia Duration: 0.00 0 DIAGNOSTIC PORTION TREATMENT PORTION RESPIRATORY DATA Event Count Index Event Count Index AHI: -- 31.6 -- 28.2 RDI: -- 31.6 -- 28 Obstructive Apnea: 9 4.3 8 4.4 Central Apnea: 0 0.0 12 6.6 Mixed Apnea: 0 0.0 0 0.0 Hypopnea: 57 27.3 31 17.1 RERA: 0 0.0 0 0.0 Total Apneas: 9 4.3 20 11.1 RESPIRATORY DATA REM NREM SLEEP REM NREM SLEEP Supine Position: Obstructive Apneas: N/A 9 9 N/A 0 0 Central Apneas: N/A 0 0 N/A 3 3 Mixed Apneas: N/A 0 0 N/A 0 0 Hypopneas: N/A 36 36 N/A 1 1 RERA N/A 0 0 N/A 0 0 Total Supine Events: N/A 45 45 N/A 4 4 Supine AHI: N/A 34.6 34.6 N/A 53.3 53.3 Supine RDI: N/A 34.6 34.6 N/A 53.3 53.3 REM NREM SLEEP REM NREM SLEEP Non-Supine Position: Obstructive Apneas: N/A 0 0 0 8 8 Central Apneas: N/A 0 0 0 9 9 Mixed Apneas: N/A 0 0 0 0 0 Hypopneas: N/A 21 21 1 29 30 RERA N/A 0 0 0 0 0 Total Supine Events: N/A 21 21 1 46 47 Supine AHI: N/A 26.5 26.5 13.3 27.7 27.1 Supine RDI: N/A 26.5 26.5 13.3 27.7 27.1 OXYGEN DESTAURATION DATA: Event Count Index Event Count Index REM Desaturations: N/A N/A 1 13.3 NREM Desaturations: 66 31.6 55 31.7 SNORE DATA DIAGNOSTIC TREATMENT Snore Time: 37.0 2:08:31 AM Snore TST%: 19 19 Snore Arousal Count: 6 1 Snore Arousal Index: 2.9 0.6 Desaturation Event Summary: Minimum %SpO2 Event Count Mean/Min/Max Duration(sec.) Desaturation Index % Time In Bed > 90 206 27.0 / 8.0 / 59.8 47.4 69.9 86 - 90 5 23.4 / 13.3 / 38.5 2.8 28.3 81 - 85 0 N/A 0.0 1.2 76 - 80 0 N/A 0.0 0.5 71 - 75 0 N/A 0.0 0.1 66 - 70 0 N/A 0.0 0.0 61 - 65 0 N/A 0.0 0.0 56 - 60 0 N/A 0.0 0.0 51 - 55 0 N/A 0.0 0.0 < 50 0 N/A 0.0 0.0 OXYGEN SATURATION DATA DIAGNOSTIC TREATMENT SpO2 Mean Sleep: 91 % 92 % SpO2 Mean REM: N/A % 93 % SpO2 Mean NREM: 91 % 92 % SpO2 Minimum Sleep: 74 % 75 % SpO2 Minimum REM: N/A % 89 % SpO2 Minimum NREM: 74 % 75 % Time Below 90% (TST): 42.8 11.1 Time Below 88% (TST): 4.1 6.0 Total REM NREM Awake <50% 0.0 min. 0.0 min. 0.0 min. 0.0 min. 51 - 60% 0.0 min. 0.0 min. 0.0 min. 0.0 min. 61 - 70% 0.0 min. 0.0 min. 0.0 min. 0.0 min. 71 - 80% 2.4 min. 0.0 min. 2.1 min. 0.3 min. 81 - 90% 109.9 min. 0.5 min. 96.0 min. 13.3 min. 91 - 100% 260.5 min. 4.0 min. 131.4 min. 125.1 min. Average 92 93 91 94 Minimum SpO2 74 89 74 74 Desaturation Event Index 33.3 13.3 31.6 38.0 # Desat. Events below 89% 81 N/A 60 21 Time(%) with Saturation below 89% 7.6 0.0 6.2 1.5 Time(min.) with Saturation below 89% 28.5 0.0 23.0 5.5 Recording Webmethods Architect Comments: Mr. Sánchez slept in the left and supine positions. No cardiac arrhythmia or PLMs noted. No bruxism noted. Snoring was noted and scored as a 3 on a scale of 0 through 5. (0=no snoring, 5=snoring loud enough to be heard through a closed door or down the lemus way) At 1:43 am, Mr. Sánchez met specific Split-Night criteria during the diagnostic portion of this study. CPAP was initiated at +4 CMH2O room air and up-titrated to a level of +11 CMH2O Cflex 2. Patient had a difficult time returning to sleep after CPAP was started. Frequent sleep onset centrals with arousals were constant until patient get into N2 sleep. A Sexton and [employer] Simplus size medium, was used during titration (a nasal mask was tried but he could not keep his mouth closed). Mr. Sánchez did not wake to use the restroom during the night. Mr. Sánchez stated, " the mask was very uncomfortable". The final report will be interpreted and signed by a sleep physician. The completed physician report will then be placed in the patient medical record. Therapy Event: Therapy (cm H20) 0 4 6 8 10 11 Total Time at Pressure (min.) 159.0 115.5 6.7 15.2 34.4 42.2 TST at Pressure (min.) 125.5 21.0 6.7 14.7 34.4 31.7 # Periods 1 1 1 1 1 1 Sleep Onset (min.) 22.0 25.0 0.0 0.0 0.0 0.0 REM Onset (min.) N/A N/A N/A N/A N/A 30.2 Sleep Efficiency % 78 18 100 96 100 75 Wakefulness (%) 21.1 81.8 0.0 3.3 0.0 24.9 Wakefulness (min.) 33.5 94.5 0.0 0.5 0.0 10.5 NREM 1 (%) 5.7 10.4 0.0 3.3 0.0 5.9 NREM 1 (min.) 9.0 12.0 0.0 0.5 0.0 2.5 NREM 2 (%) 61.3 7.8 100.0 93.4 84.0 32.5 NREM 2 (min.) 97.5 9.0 6.7 14.2 28.9 13.7 NREM 3 (%) 11.9 0.0 0.0 0.0 16.0 26.0 NREM 3 (min.) 19.0 0.0 0.0 0.0 5.5 11.0 REM (%) 0.0 0.0 0.0 0.0 0.0 10.7 REM (min.) 0.0 0.0 0.0 0.0 0.0 4.5 # Arousals 24 13 1 2 1 1 Arousal Index 11.5 37.1 9.0 8.2 1.7 1.9 # Snore 1,304 30 11 33 269 188 Snore Index 623.4 85.7 98.7 134.6 469.8 355.5 AHI 31.6 68.6 53.8 57.1 10.5 1.9 AHI Supine 34.6 53.3 N/A N/A N/A N/A AHI Non-Supine 26.5 72.7 53.8 57.1 10.5 1.9 NREM AHI 31.6 68.6 53.8 57.1 10.5 0.0 REM AHI N/A N/A N/A N/A N/A 13.3 RDI 31.6 68.6 53.8 57.1 10.5 1.9 # Obstructive 9 1 2 4 1 0 # Central Ap 0 11 0 1 0 0 # Mixed 0 0 0 0 0 0 # Hypopneas 57 12 4 9 5 1 RERAS 0 0 0 0 0 0 Total Respiratory Events 66 24 6 14 6 1 Time Below SpO2 89.00% (min.) 15.0 2.0 1.9 3.5 0.6 0.0 Mean NREM SpO2 (%) 91 93 90 91 92 92 Mean REM SpO2 (%) N/A N/A N/A N/A N/A 93 Mean Sleep SpO2 (%) 91 93 90 91 92 92 Min NREM SpO2 (%) 74 75 75 75 86 90 Min REM SpO2 (%) N/A N/A N/A N/A N/A 89 Position Supine (min.) 78.0 4.5 0.0 0.0 0.0 0.0 Position Non-supine (min.) 47.5 16.5 6.7 14.7 34.4 31.7 LM Index Sleep 17.2 17.1 0.0 8.2 1.7 5.7 LM Index NREM 17.2 17.1 0.0 8.2 1.7 6.6 LM Index REM N/A N/A N/A N/A N/A 0.0 Mean Heart Rate (bpm) 55 50 52 54 57 58 Min Heart Rate (bpm) 48 46 47 49 50 51
--- NOTE | 2017-05-31 14:50 | POLYSOMNOGRAPH REPORT ---
CLINICAL DATA: A 61-year-old male with BMI of 44.5 referred by myself for a split night sleep study with complaints of insomnia, loud snoring, and witnessed apnea. SLEEP ARCHITECTURE: For the diagnostic portion of the study, total recording time was 159.5 minutes. Total sleep period was 137 minutes. Total sleep time was 125.5 minutes, all non-REM sleep. Sleep latency was 22 minutes. Sleep efficiency was 79%. Arousal index was 11.5. Sleep consisted of stage N1 7%, stage N2 78%, and stage N3 15%. For the treatment portion of this study, total recording time was 215 minutes. Total sleep period was 187.5 minutes. Total sleep time was 108.5 minutes divided between 104 minutes of non-REM sleep and 4.5 minutes of REM sleep. Sleep onset latency was 25 minutes. Sleep efficiency was 51%. Arousal index was 10. Sleep consisted of stage N1 14%, N2 67%, N3 15%, and REM 4%. AROUSAL DATA: Prior to treatment, 24 arousals were recorded for an index of 11.5 per hour. With treatment, 18 arousals were recorded for an index of 10 per hour. PLM DATA: Prior to treatment, 18 limb movements during sleep were noted for an index of 8.6 per hour. During treatment 9 limb movements during sleep were noted for an index of 5 per hour. EKG: Heart rates ranged from 55-92 beats per minute. No arrhythmias were noted. RESPIRATORY DATA: Prior to treatment, severe sleep apnea was documented. The AHI was 31.6. There were 9 obstructive apneic episodes and 57 hypopneic episodes. During treatment the AHI was 28.2. There were 8 obstructive and 12 central apneic episodes and 31 hypopneic episodes. OXIMETRY DATA: Nocturnal hypoxemia was seen. Oxygen woodrow was 74% during non-REM sleep prior to treatment. Mean saturation with treatment was 92%. TUYERE FITTER'S COMMENTS AND TREATMENT SUMMARY: The patient slept in the left and supine positions. Snoring was moderate, rated 3 on a scale of 1-5. At 1:43 a.m. he met split night criteria. CPAP was started at 4 cm of water pressure and increased to 11 cm water pressure, C-Flex setting 2. He had a difficult time returning to sleep. He did use a Localist and [employer] size medium facemask. At this final pressure setting, he slept for 31.7 minutes with an AHI of 1.9. IMPRESSION: Severe sleep apnea/hypopnea corrected with CPAP 11 cm of water pressure, C-Flex 2 with a [employer] Simplus medium mask. RECOMMENDATIONS: The patient should be started on the above noted treatment regimen and seen back in followup within 90 days to document efficacy and compliance. [facility]
== END | disposition home or self-care (01) ==
LOC: C.NEUR 21:00
PROVIDERS: ATTEND Internal Medicine Pulmonary Disease
DX: R53.83 Other fatigue (principal); G47.00 Insomnia, unspecified; G47.9 Sleep disorder, unspecified; R06.83 Snoring; R06.81 Apnea, not elsewhere classified; G47.33 Obstructive sleep apnea (adult) (pediatric)

== ENCOUNTER → 2017-06-29 | Outpatient (CLI) | payer OTHER ==
[~2017-06-29] VITALS: Ht 175.3 cm; Wt 131.5 kg
[2017-06-29 13:27] VITALS: BP 105/69; PULSE 67; Ht 175.3 cm; Wt 131.5 kg
== END | disposition home or self-care (01) ==
LOC: C.NEUR 12:29
PROVIDERS: ATTEND Internal Medicine Pulmonary Disease
DX: G47.33 Obstructive sleep apnea (adult) (pediatric) (principal); G47.9 Sleep disorder, unspecified; G47.00 Insomnia, unspecified; R53.83 Other fatigue; H81.09 Meniere's disease, unspecified ear; F41.9 Anxiety disorder, unspecified; E78.5 Hyperlipidemia, unspecified; N40.1 Benign prostatic hyperplasia with lower urinary tract symptoms; H91.90 Unspecified hearing loss, unspecified ear; Z98.49 Cataract extraction status, unspecified eye; Z83.3 Family history of diabetes mellitus; Z82.3 Family history of stroke; Z82.49 Family history of ischemic heart disease and other diseases of the circulatory system

== ENCOUNTER → 2017-09-14 | Outpatient (CLI) | payer OTHER ==
[~2017-09-14] VITALS: Ht 175.3 cm; Wt 132.0 kg
[~2017-09-14] MED LIST changes: -HYDR-4079 PO; +NORT25CA PO; -OXGN; +SILD1TAB11 PO; -SILD1TAB39 PO; +TRIA37.5 PO; -TRIAMTERENE HCTZ PO
[2017-09-14 13:16] VITALS: BP 117/76; PULSE 90; Ht 175.3 cm; Wt 132.0 kg
== END | disposition home or self-care (01) ==
LOC: C.NEUR 13:00
PROVIDERS: ATTEND Internal Medicine Pulmonary Disease
DX: G47.33 Obstructive sleep apnea (adult) (pediatric) (principal); G47.00 Insomnia, unspecified

== ENCOUNTER 2017-09-19 07:35 | Day surgery (SDC) | payer OTHER ==
[~2017-09-19] VITALS: Ht 175.3 cm; Wt 132.0 kg
[2017-09-19] VITALS (9 sets, daily range): BP systolic 109–130; BP diastolic 52–81; PULSE 56–78; TEMP 36.5–36.7; O2SAT 93–96; Ht 175.3 cm; Wt 132.0 kg
[~2017-09-19 07:35] MED LIST changes: -SILD1TAB11 PO
[2017-09-19] MEDS ORDERED: SILD1TAB11 PO (08:01)
--- NOTE | 2017-09-19 09:33 | Discharge Instructions ---
Discharge Instructions Procedure Procedure Date: Sep 19, 2017. Reason for visit: L Lumbar Spine Nerve Root Compression,Prior Surger. Discharge Discharge Date: Sep 19, 2017. Discharge Diagnosis: left lumbar radiculopathy Instructions Activity Recommendations: 1 Day with no driving/machine use Return to School/Work: no limitations Recommended Home Diet: Resume Previous Diet Allergies Coded Allergies: Simvastatin (Verified Adverse Reaction, Mild, muscle soreness, 09/19/17) Caren Knox Recommendations: Call your doctor if: * Temperature above 101 degrees * Pain not relieved by pain medicine ordered * There is increased drainage or redness from any incision * You have any unanswered questions or concerns. Your Doctors Instructions noted above were prepared by provider Zachary Foreman. Patient Signature Section: Patient Instructions Signature Page Edward Sánchez Patient (or Guardian) Signature/Date: I have read and understand the instructions given to me by my caregivers. Caregiver/RN/Doctor Signature/Date: The above-named patient and/or guardian has received patient instructions on this date. + Original Patient Signature Page (only) stays with chart. Please make copy for patient.
[2017-09-19] MEDS ORDERED: ACETAMINOPHEN 500 MG TAB PO PRN (09:45)
--- NOTE | 2017-09-19 09:45 | DIAGNOSTIC IMAGING REPORT ---
CT POST MYELOGRAM CT SCAN OF THE LUMBAR SPINE CT DOSE: 1328.86 mGy.cm CLINICAL HISTORY: Left leg radiculopathy status post L2-3 laminectomy and fusion. TECHNIQUE: Following a diagnostic lumbar myelogram, CT scanning lumbar spine was performed in a helical fashion. Sagittal and coronal reformatted images were acquired. A dose lowering technique was utilized adhering to the principles of ALARA. COMPARISON STUDY: Outside MRI the lumbar spine dated 05/18/2016 FINDINGS: No fractures or subluxations are visualized. No destructive lesions are visualized. No abnormalities of the conus are visualized. T12-L1 level: There is a minor circumferential disc bulge. There is no significant spinal or foraminal stenosis. L1-2 level: There is no evidence of significant disc bulge or focal herniation. There is no evidence of spinal or foraminal stenosis. L2-3 level: There are postsurgical changes of a posterior laminectomy, and spinal fusion. There is no significant spinal or foraminal stenosis. There is a small collection of contrast posterior to the thecal sac. There is contrast within the needle tract extending to the skin surface. L3-4 level: There is a circumferential disc bulge present. There is mild spinal stenosis. There is minor left-sided foraminal narrowing. L4-5 level: There is a mild circumferential disc bulge. There is minimal triangular spinal canal narrowing. There is no significant foraminal stenosis. L5-S1 level: There is no evidence of significant disc bulge or focal herniation. There is no evidence of spinal stenosis. There is no evidence of significant foraminal narrowing. IMPRESSION: 1. Postsurgical changes of a laminectomy and spinal fusion at the L2-3 level. No evidence of spinal or foraminal stenosis 2. Mild L3-4 disc bulge with mild spinal stenosis and minor left-sided foraminal narrowing 3. Mild L4-5 disc bulge with minimal triangular spinal canal narrowing 4. 14 x 8 mm collection of contrast posterior to the thecal sac at the L2-3 level. This is felt to represent contrast leakage from the myelographic dural puncture site. A small amount of contrast is also visualized extending along the needle tract. Usually these iatrogenic small CSF leaks spontaneously heal. Clinical follow-up is advocated. Electronically signed by: Zachary Foreman M.D. 09/19/2017 9:43 AM Dictated Date/Time: 09/19/2017 9:28 AM
--- NOTE | 2017-09-19 09:48 | DIAGNOSTIC IMAGING REPORT ---
LUMBAR MYELOGRAM CLINICAL HISTORY: Left leg radiculopathy. COMPARISON STUDY: Outside MRI dated 05/18/2016 FINDINGS: A timeout was performed. The risks the procedure were explained the patient informed consent was obtained. 12 fluoroscopic spot images were acquired. 42 seconds of fluoroscopic time was utilized. Patient prepped and draped in sterile fashion. The skin was anesthetized 1% lidocaine. Under fluoroscopic guidance, 20-gauge spinal needle was introduced into the thecal sac at the L2-3 level. 12 cc of Isovue M200 was introduced into the thecal sac. There is no evidence of nerve root amputation. There is minimal wasting of the myelographic column at the L3-4 level. Mild spinal stenosis is suspected. There are postsurgical changes of a laminectomy and spinal fusion at the L2-3 level. The patient tolerated the procedure well. There were no complications. IMPRESSION: 1. Mild spinal canal narrowing at the L3-4 level. Electronically signed by: Zachary Foreman M.D. 09/19/2017 9:47 AM Dictated Date/Time: 09/19/2017 9:44 AM
[2017-09-19] MEDS ORDERED: ACETAMINOPHEN 500 MG TAB PO ONE (10:23)
== END 2017-09-19 13:30 | disposition home or self-care (01) ==
LOC: C.ACU 07:35
PROVIDERS: ATTEND Orthopaedic Surgery Orthopaedic Surgery of the Spine
DX: M54.10 Radiculopathy, site unspecified (principal)

== ENCOUNTER → 2017-10-16 | Outpatient (CLI) | payer OTHER ==
[~2017-10-16] MED LIST changes: +HYDR-5688 PO; +SILD1TAB11 PO
--- NOTE | 2017-10-16 15:39 | DIAGNOSTIC IMAGING REPORT ---
L HIP UNILATERAL 2 VIEWS CLINICAL HISTORY: LEFT HIP PAIN COMPARISON: None. DISCUSSION: There are moderate osteoarthritic changes with superior joint space narrowing. No acute fractures are visualized. No destructive lesions are evident. IMPRESSION: 1. No acute fractures 2. Moderate osteoarthritic changes Electronically signed by: Zachary Foreman M.D. 10/16/2017 3:37 PM Dictated Date/Time: 10/16/2017 3:37 PM
== END | disposition home or self-care (01) ==
LOC: C.RADBC 15:18
PROVIDERS: ATTEND Anesthesiology
DX: M25.552 Pain in left hip (principal)

== ENCOUNTER 2018-01-23 05:08 | Inpatient (IN) | payer OTHER ==
[2018-01-10 08:11] VITALS: BMI 39.0
--- NOTE | 2018-01-10 08:50 | PAT Medication Instructions ---
Service Date Jan 10, 2018. Current Home Medication List Acetaminophen (Tylenol), 1 TAB PO TID PRN for Pain Aspirin (Aspirin Ec), 81 MG PO HS Ezetimibe (Zetia), 10 MG PO HS Gabapentin (Neurontin), 900 MG PO TID Ibuprofen (Advil), 600-800 MG PO TID PRN for RN Lorazepam (Ativan), 0.5 MG PO PRN Nortriptyline (Pamelor), 25 MG PO QAM Omeprazole (Prilosec), 20 MG PO DAILY PRN for Heartburn Sildenafil Citrate (Viagra), 25 MG PO PRN Terazosin (Hytrin), 5 MG PO HS Triamterene/Hctz (Dyazide 37.5MG/25MG), 1 CAP PO QPM Zolpidem Tartrate (Ambien), 10 MG PO HS Medication Instructions For Your Scheduled Surgery -Check with your surgeon for instructions for: Ibuprofen (Advil), 600-800 MG PO TID PRN for RN - Hold the following medications THE NIGHT BEFORE surgery: Ezetimibe (Zetia), 10 MG PO HS Triamterene/Hctz (Dyazide 37.5MG/25MG), 1 CAP PO QPM - Take the following medications the morning of surgery with a sip of water: Acetaminophen (Tylenol), 1 TAB PO TID PRN for Pain (if needed, can be taken up to four hours before surgery) Gabapentin (Neurontin), 900 MG PO TID Lorazepam (Ativan), 0.5 MG PO PRN (if needed) Nortriptyline (Pamelor), 25 MG PO QAM Omeprazole (Prilosec), 20 MG PO DAILY PRN for Heartburn (if needed) - Take the following medications as scheduled the night before surgery: Acetaminophen (Tylenol), 1 TAB PO TID PRN for Pain (if needed) Aspirin (Aspirin Ec), 81 MG PO HS Gabapentin (Neurontin), 900 MG PO TID Omeprazole (Prilosec), 20 MG PO DAILY PRN for Heartburn (if needed) Sildenafil Citrate (Viagra), 25 MG PO PRN (if needed) Terazosin (Hytrin), 5 MG PO HS Zolpidem Tartrate (Ambien), 10 MG PO HS If you have any questions please call us at [phone] or [phone] or [phone]
--- NOTE | 2018-01-10 09:55 | DIAGNOSTIC IMAGING REPORT ---
TWO VIEW CHEST CLINICAL HISTORY: Preoperative examination. FINDINGS: PA and lateral chest radiographs are compared to study dated 11/10/2016. The heart is mildly enlarged. The pulmonary vasculature is noncongested. Chronic interstitial thickening with foci of parenchyma scarring are similar to previous. No airspace consolidation or pleural effusion is identified. There is no pneumothorax. The skeletal structures are osteopenic. Degenerative change and mild hyperkyphosis are noted in the thoracic spine. Fusion hardware is partially imaged in the lumbar spine. There are healed left-sided rib fractures. IMPRESSION: Chronic changes as above with no acute cardiopulmonary abnormality. Electronically signed by: Jasper Aguero M.D. 01/10/2018 9:54 AM Dictated Date/Time: 01/10/2018 9:52 AM
[2018-01-10 10:41] LABS: BASO % 0.7 %; BASO ABS # 0.06 K/uL (0-0.2); EOS % 1.4 %; EOS ABS # 0.12 K/uL (0-0.5); HEMATOCRIT 40.9 % (42-52); IG# 0.02 K/uL (0.00-0.02); LYMPH % 18.7 %; LYMPH ABS # 1.61 K/uL (1.2-3.4); MEAN CELL VOLUME 86.8 fL (80-100); MEAN CORPUSCULAR HEMOGLOBIN 29.7 pg (25-34); MEAN CORPUSCULAR HGB CONC 34.2 g/dl (32-36); MEAN PLATELET VOLUME 10.6 fL (7.4-10.4); MONO % 9.8 %; MONO ABS # 0.84 K/uL (0.11-0.59); NEUT % 69.2 %; NEUT ABS # 5.94 K/uL (1.4-6.5); PLATELET COUNT 255 K/uL (130-400); RED CELL DISTRIBUTION WIDTH CV 13.7 % (11.5-14.5); RED CELL DISTRIBUTION WIDTH SD 43.7 fL (36.4-46.3); WHITE BLOOD COUNT 8.59 K/uL (4.8-10.8)
[2018-01-10 10:47] LABS: CALCIUM 9.1 mg/dl (8.5-10.1); CREATININE 1.48 mg/dl (0.60-1.40); POTASSIUM 3.9 mmol/L (3.5-5.1)
[2018-01-10 10:49] LABS: PTT PATIENT 28.1 SECONDS (21.0-31.0)
--- NOTE | 2018-01-18 21:08 | HISTORY & PHYSICAL EXAMINATION ---
DATE OF ADMISSION: 01/23/2018 CHIEF COMPLAINT: Left hip pain. HISTORY OF PRESENT ILLNESS: A 62-year-old gentleman with a history of multiple spine surgeries, one in 1982 and one more recently by Dr. Mckenzie in 2017, who presents for treatment of his left leg, hip, groin, and thigh pain. He did have this recent spine surgery and it feels like it has helped him significantly. He continues to be bothered by a different type of pain. He describes groin pain or thigh pain. It is worse when he walks. It has gotten worse over the past 6 months. The more he walks, the more he limps. X-rays show hip arthritis. He would like to have his hip replaced. PAST MEDICAL HISTORY: 1. Elevated cholesterol. 2. Sleep apnea, on CPAP machine. 3. Obesity with a BMI of 40. 4. Gastroesophageal reflux disease. 5. Arthritis. 6. BPH. PAST SURGICAL HISTORY: Previous surgeries include: 1. Laminectomy in 2017. 2. Back surgery in 1982. ALLERGIES: SIMVASTATIN. MEDICATIONS: Current medications include 1. Triamterene/HCTZ. 2. Terazosin. 3. Zolpidem. 5. Lorazepam. 6. Gabapentin. 7. Nortriptyline. 8. Aspirin. SOCIAL HISTORY: A 62-year-old male. He is . 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 He does not smoke. One drink per week. FAMILY HISTORY: Noncontributory. REVIEW OF SYSTEMS: Negative for diabetes, neurologic problem, vascular problem, bleeding disorders. He does have chronic back pain history. No chest pain, no shortness of breath. No history of DVT or PE. PHYSICAL EXAMINATION: GENERAL: Exam reveals a pleasant middle-aged male. He looks to be in reasonably good health. Fairly large gentleman. HEENT: Benign. NECK: Supple. No lymphadenopathy. LUNGS: Clear to auscultation. CARDIOVASCULAR: Heart has regular rate and rhythm. GASTROINTESTINAL: Abdomen is soft, nontender, nondistended. EXTREMITIES: Grossly neurovascularly intact except as follows: Examination of left hip and leg reveals patient walks with an antalgic gait. Leg lengths clinically appear pretty equal. He has limited hip motion with pain with internal rotation. Negative straight leg raise. He is neurologically intact. No knee effusion. IMAGING: X-rays of left hip were reviewed. The patient has advanced left hip DJD. He has complete loss of his superior joint space. ASSESSMENT: A 62-year-old male with history of 2 previous spine surgeries with advanced left hip arthritis. He has failed conservative treatment and would like to have his left hip replaced. Certainly some of his pain is coming from his back as well. PLAN: We talked about treatment. He would like to have his left hip replaced. The risks and benefits of total hip replacement were explained to the patient including but not limited to DVT, PE, , infection, neurological injury, vascular injury, bleeding problem, pain, limited range of motion, stiffness, failure to relieve her symptoms, incomplete relief of symptoms, need for further surgery in future, fracture, leg length inequality, nerve palsy, persistent pain, dislocation, etc. The patient understands and desires to proceed. Informed consent was obtained. The patient does have an elevated creatinine, will have to be careful with using NSAIDs postoperatively. He does take NSAIDs currently. He will bring his CPAP machine to the hospital. He should be able to be discharged to home using the home health program with his 's assistance as she is a physician medical services assistant.
[~2018-01-23] VITALS: Ht 177.8 cm; Wt 124.4 kg
[2018-01-23] VITALS (23 sets, daily range): BP systolic 96–145; BP diastolic 56–95; PULSE 59–96; TEMP 34.6–38.1; O2SAT 90–98; Ht 177.8 cm; Wt 124.4 kg
[~2018-01-23 05:08] MED LIST changes: +ACET-1256 PO; -HYDR-5688 PO; +PRLSR20 PO
[2018-01-23] MEDS ORDERED: METOCLOPRAMIDE HCL 10 MG TAB PO SCH (06:00)
[2018-01-23] MEDS ORDERED: CEFAZOLIN 3000MG IV PUSH 22.5 ML IV SCH (06:00)
[2018-01-23] MEDS ORDERED: TRANEXAMIC ACID INJ 1,000 MG x 1 Bag Preop IV SCH ×2 (06:00)
[2018-01-23] MEDS ORDERED: GABAPENTIN 600 MG PO SCH (06:00)
[2018-01-23] MEDS: LACTATED RINGER'S 1000ML IV SCH ×2 (06:00→09:16)
[2018-01-23] MEDS ORDERED: LACTATED RINGER'S 1000ML 1,000 ML IV SCH (06:00)
[2018-01-23] MEDS ORDERED: ACETAMINOPHEN 500 MG TAB PO SCH (06:00)
[2018-01-23] MEDS ORDERED: LACTATED RINGER'S 1000ML 500 ML IV SCH (06:00)
[2018-01-23] MEDS ORDERED: FAMOTIDINE 20 MG TAB PO SCH (06:00)
[2018-01-23] MEDS ORDERED: SCOPOLAMINE 1.5 MG TDSY TD SCH (06:00)
[2018-01-23] MEDS ORDERED: BUPIVACAINE 0.5 % 5 MG/1 ML PF 10ML VIAL ONE (06:23)
[2018-01-23] MEDS ORDERED: MIDAZOLAM HCL 1 MG/ML 2ML VIAL ONE (06:45)
[2018-01-23] MEDS ORDERED: FENTANYL CITRATE INJ 50 MCG/1 ML 2 ML VIAL ONE (06:46)
[2018-01-23] MEDS ORDERED: BUPIVACAINE/EPINEPHRINE 0.5% MPF 1:200,000 30 ML VIAL ONE (06:59)
[2018-01-23] MEDS ORDERED: BACITRACIN 50000 UNIT VIAL ONE (06:59)
[2018-01-23] MEDS ORDERED: MoRPHine SULFATE PF 1 MG/ML 10 ML AMP/VIAL ONE (07:02)
[2018-01-23] MEDS ORDERED: PROPOFOL IV EMULSION 10 MG/ML 20 ML VIAL IV ONE (07:52)
[2018-01-23] MEDS ORDERED: LIDOCAINE HCL 2% 2 ML VIAL (20MG/ML) ONE (07:52)
[2018-01-23] MEDS ORDERED: ONDANSETRON INJ 2 MG/ML 2 ML VIAL ONE (07:52)
[2018-01-23] MEDS ORDERED: EpHEDrine SULFATE 50MG/5ML SYR ONE (07:52)
--- NOTE | 2018-01-23 08:52 | [facility] Post Operative Brief Note ---
Immediate Operative Summary Operative Date Jan 23, 2018. Pre-Operative Diagnosis Advanced left hip arthritis Post-Operative Diagnosis Advanced left hip arthritis Procedure(s) Performed Left total hip arthroplasty, uncemented Surgeon Dr. Parker Wagon Driller Surgeon(s) Dong Hart PA-C Estimated Blood Loss 300cc Findings Consistent with Post-Op Diagnosis Fluids (cc crystalloids) 1800 cc Specimens A: Left femoral head Drains None Anesthesia Type Spinal MAC Complication(s) none Disposition Accompanied Pt To Recover: yes Disposition: Recovery Room / PACU
[2018-01-23] MEDS ORDERED: ALUMINUM/MAGNESIUM/SIMETH (MAALOX MAX) 30 ML UDC PO PRN (09:00)
[2018-01-23] MEDS ORDERED: ONDANSETRON INJ 2 MG/ML 2 ML VIAL IV PRN (09:00)
[2018-01-23] MEDS ORDERED: BISACODYL 10 MG SUPP PR PRN (09:00)
[2018-01-23] MEDS ORDERED: TAMSULOSIN HCL 0.4 MG CAP PO PRN (09:00)
[2018-01-23] MEDS ORDERED: METOCLOPRAMIDE HCL INJ 5 MG/ML 2 ML VIAL IV PRN (09:00)
[2018-01-23] MEDS ORDERED: MAGNESIUM HYDROXIDE SUSP 30 ML UDC PO PRN (09:00)
[2018-01-23] MEDS ORDERED: SILVER SULFADIAZINE 1% CR 50 GM JAR EXT PRN (09:00)
[2018-01-23] MEDS ORDERED: PANTOprazole SOD 40 MG TAB PO PRN (09:00)
[2018-01-23] MEDS ORDERED: SODIUM CHLORIDE 0.9% 1000ML 1,000 ML IV PRN (09:25)
[2018-01-23] MEDS ORDERED: LACTATED RINGER'S 1000ML 500 ML IV PRN (09:25)
[2018-01-23] MEDS ORDERED: NALOXONE HCL INJ 1 MG in SODIUM CHLORIDE 0.9% 1000ML 1,000 ML IV PRN (09:25)
[2018-01-23] MEDS ORDERED: NALOXONE HCL INJ 0.08 MG in SYRINGE 1.8 ML IV PRN (09:25)
[2018-01-23] MEDS ORDERED: KETOROLAC TROMETHAMINE 30 MG/ML VIAL IV. PRN (09:30)
[2018-01-23] MEDS ORDERED: DiphenhydrAMINE HCL 50 MG/ML VIAL IV PRN ×2 (09:30)
[2018-01-23] MEDS ORDERED: ATROPINE SULFATE 0.1 MG/ML 5ML SYR IV PRN (09:30)
[2018-01-23] MEDS ORDERED: NO NARCOTICS OR SEDATIVES SCH (09:30)
[2018-01-23] MEDS ORDERED: DC INTRASPINAL MORPHINE SCH (09:30)
[2018-01-23] MEDS ORDERED: MEPERIDINE HCL 25 MG/ML CARP IV PRN (09:30)
[2018-01-23] MEDS ORDERED: MoRPHine SULFATE 2 MG/ML CARP IV PRN (09:30)
[2018-01-23] MEDS ORDERED: NALBUPHINE HCL INJ 10 MG/ML AMP IV PRN (09:30)
[2018-01-23] MEDS ORDERED: NALOXONE HCL 0.4 MG/1 ML VIAL/CARP IV PRN (09:30)
[2018-01-23] MEDS ORDERED: EpHEDrine SULFATE INJ 50 MG/ML AMP IV PRN ×2 (09:30)
[2018-01-23] MEDS ORDERED: MoRPHine SULFATE PF 1 MG/ML 10 ML AMP/VIAL EPI PRN (09:30)
--- NOTE | 2018-01-23 09:33 | DIAGNOSTIC IMAGING REPORT ---
AP PELVIS, CROSSTABLE LATERAL LEFT HIP History: Left total hip arthroplasty. Degenerative arthritis. Postop. FINDINGS: The patient is status post a left total hip arthroplasty. The hardware is intact. No fracture or dislocation. Skin kim are in place. IMPRESSION: Left total hip arthroplasty. No evidence for hardware complication. Electronically signed by: Artur Mclean M.D. 01/23/2018 9:32 AM Dictated Date/Time: 01/23/2018 9:31 AM
--- NOTE | 2018-01-23 10:34 | OPERATIVE REPORT ---
DATE OF OPERATION: 01/23/2018 SURGEON: Nba Parker MD CULTURIST: AC Hobbs PREOPERATIVE DIAGNOSIS: Left hip degenerative joint disease. POSTOPERATIVE DIAGNOSIS: Left hip degenerative joint disease. PROCEDURE PERFORMED: Left uncemented ceramic on highly cross-linked polyethylene total hip arthroplasty. COMPLICATIONS: None. ESTIMATED BLOOD LOSS: 300 mL. FLUID REPLACEMENT: 1800 mL crystalloid fluid replacement. ANESTHESIA: Spinal. DRAINS: None. SPECIMENS: Left femoral head sent for pathology. OPERATIVE INDICATIONS: The patient is a 62-year-old male who has had a long history of musculoskeletal problems. He has had 2 previous back surgeries. He has continued to have persistent pain and discomfort in left thigh, groin, and hip. He failed conservative treatment. X-rays revealed advanced hip arthritis. The patient elected to proceed with operative treatment. OPERATIVE FINDINGS: Operative findings revealed advanced left hip DJD. He had grade 4 [id number] disease of the femoral head and acetabulum. Not much in the way of osteophyte formation. He did have a pretty significant joint effusion. He had a very shallow acetabulum. He had quite a bit of anteversion in the femoral neck as well. OPERATIVE IMPLANTS: Operative implants consisted of: 1. A Biomet G7 size 54 mm acetabular shell. 2. 6.5 cancellous acetabular screws, 1 at 35 mm length and 1 at 30 mm length. 3. An apex hole eliminator. 4. A highly cross-linked polyethylene liner with a 54 mm outer diameter and 36 mm inner diameter with a roberts placed very inferior and posterior. 5. DePuy CORAIL size 12 KLA/coxa vara femoral component. 6. A +8.5/36 mm ceramic articular ball. OPERATIVE PROCEDURE: The patient was taken to the operating room, identified, and placed on the operating table in supine position. All contact areas were appropriately padded. IV antibiotics were provided by anesthesia team. A spinal anesthetic had been implemented in the holding area. A Song catheter was placed in sterile fashion. The patient was then placed in the right lateral decubitus position. An axillary roll was placed. A Stlberg hip positioner was used for positioning. The left hip and leg were then prepped and draped in usual sterile fashion. A posterolateral approach to the left hip was then performed through a curvilinear incision centered over the greater trochanter. Sharp dissection was carried through the subcutaneous tissue down below IT band and gluteal fascia. The IT band and gluteal fascia were then incised longitudinally in line with the skin incision. The underlying greater trochanteric bursa was excised. The posterior capsule and external rotators were released from the posterior aspect of the femur as a single envelope as there was a lot of fat which obscured visualization of the external rotators. Great care was taken throughout the procedure to protect the sciatic nerve at all times. The hip was internally rotated and dislocated. A femoral neck osteotomy cut was made with the final cut about 12 mm above the lesser trochanter. The femoral head was removed and sent for pathology. The femur was retracted anteriorly. Attention was then drawn to the acetabulum. The acetabular labrum was excised. The pulvinar fat was excised. I then began reaming beginning with a size 49 reamer and first medialized this to get better coverage and then reamed for position. We started with a 49, progressed up to 53. A 54 mm Biomet G7 acetabular shell was then placed in about 40 degrees of lateral opening and 20 degrees of anteversion. It was fixed with two 6.5 cancellous acetabular screws. A trial liner was placed. Attention was then drawn to the femur. The proximal femur was entered with a cookie cutter followed by a canal finder. He had excellent cancellous bone. We then broached beginning with a size 8 and progressing up to a 12. I had difficulty getting the 12 down. We elected to stop there. A calcar reamer was used to smoothen off the calcar. We then trialed the hip. The hip was fully stable with all implants, but just seemed lax with the +5 implant. We had elected to place the 8.5, which seemed to recreate leg lengths appropriately and was fully stable in full extension and external rotation and flexion to 90 degrees and internal rotation to [address] We elected to place these implants. All trial implants were removed. An apex hole eliminator was placed. A highly cross-linked polyethylene liner with a roberts placed inferior and posterior was then placed. A DePuy CORAIL size 12 coxa vara/KLA femoral stem was then impacted in position. A +8.5/36 mm ceramic articular ball was placed. The hip was located once again found to be stable. Attention was then drawn toward closing. The wound was irrigated with copious amounts of pulsatile lavage solution. I did inject locally with 60 mL of 0.5% Marcaine with epinephrine. The posterior capsule and external rotators were then repaired as a single layer through drill holes in the posterior trochanter with #2 Ti-Cron stitches. The IT band and gluteal fascia were then closed with #1 PDS suture in running fashion. The subcutaneous tissues were then closed in 2 layers, the deep layer with #1 Vicryl suture in a buried interrupted fashion and the subcutaneous tissues with 2-0 Dexon suture in a buried interrupted fashion. The skin was closed skin kim. The leg was then cleaned and dried and a sterile dressing of Xeroform, 4 x 4s, sterile ABD pad and foam tape was applied. The patient was then transferred to the recovery room in stable condition. The patient tolerated the procedure well with no complication. All needle and sponge counts were correct at the end of the operation. I attest to the content of the Intraoperative Record and any orders documented therein. Any exception s are noted below.
[2018-01-23] MEDS: D5W AND 1/2NSS + 20MEQ KCL 1,000 ML IV SCH ×3 (10:49→23:56)
[2018-01-23] MEDS: FERROUS GLUCONATE 324 MG TAB PO SCH ×2 (11:53→18:40)
[2018-01-23] MEDS: KETOROLAC TROMETHAMINE 15 MG/ML VIAL IV. SCH ×3 (11:53→23:57)
--- NOTE | 2018-01-23 12:29 | Anesthesiology Progress Note ---
Anesthesia Post Op Note Date & Time Jan 23, 2018 at 12:28 Vital Signs Pain Intensity: 0.0 Vital Signs Past 12 Hours Date Time Temp Pulse Resp B/P (MAP) Pulse Ox O2 Delivery O2 Flow Rate FiO2 01/23/18 11:56 16 96 01/23/18 11:55 68 16 121/74 (90) 96 Nasal Cannula 2.0 01/23/18 10:55 18 90 01/23/18 10:55 34.6 59 18 114/68 (83) 90 Room Air 01/23/18 10:25 34.7 20 98/62 (74) 92 Room Air 01/23/18 09:55 36.4 70 16 99/63 (75) 95 Nasal Cannula 2.0 01/23/18 09:55 16 95 01/23/18 09:55 95 Nasal Cannula 2.0 01/23/18 09:55 95 Nasal Cannula 2.0 01/23/18 09:40 36.2 69 16 103/58 99 Nasal Cannula 2 01/23/18 09:30 36.2 72 16 98/58 99 Nasal Cannula 2 01/23/18 09:20 36.2 76 16 105/61 99 Nasal Cannula 2 01/23/18 09:10 76 16 111/66 99 Nasal Cannula 2 01/23/18 09:00 78 16 109/61 99 Oxymask 10 01/23/18 08:51 36.2 83 16 94/50 95 Oxymask 10 01/23/18 05:43 37 73 20 145/95 93 Room Air Notes Mental Status: alert / awake / arousable, participated in evaluation Pt Amnestic to Procedure: Yes Nausea / Vomiting: adequately controlled Pain: adequately controlled Airway Patency, RR, SpO2: stable & adequate BP & HR: stable & adequate Hydration State: stable & adequate Anesthetic Complications: no major complications apparent
[2018-01-23] MEDS: GABAPENTIN 300 MG CAP PO SCH ×2 (13:53→21:42)
[2018-01-23] MEDS: ACETAMINOPHEN 500 MG TAB PO SCH ×2 (13:54→21:41)
[2018-01-23] MEDS: PANTOprazole SOD 40 MG TAB PO SCH (13:54)
[2018-01-23] MEDS: CEFAZOLIN IV 2,000 MG in SYRINGE 0 ML IV SCH ×2 (13:55→21:41)
[2018-01-23] MEDS ORDERED: CEFAZOLIN 2000MG IV PUSH 15 ML IV SCH (14:00)
--- NOTE | 2018-01-23 14:51 | PROGRESS NOTE ---
DATE: 01/23/2018 SUBJECTIVE: A 62-year-old gentleman postop from the left total hip replacement. He is doing well. Minimal pain. No chest pain or shortness of breath. Not feeling dizzy or lightheaded. OBJECTIVE: VITAL SIGNS: Temperature 36.7. Stable. GENERAL: Exam reveals a healthy, pleasant, middle-aged male, obese, sitting up in bed, looks pretty comfortable. He is talking to his . MUSCULOSKELETAL: Examination of the left hip and leg reveals leg lengths to be equal. His hip is located. Dressing is clean, dry, and intact. Thigh is soft and supple. He is neurologically intact. He can dorsiflex and plantar flex his foot appropriately. IMAGING: X-ray of the left hip from recovery room reviewed. It shows left uncemented total hip arthroplasty. The components looked to be in good position. No signs of problems. ASSESSMENT: A 62-year-old gentleman postop from a left total hip replacement, doing well. His pain is controlled. Hip is located. He is neurologically intact. PLAN: 1. DVT prophylaxis including thigh-high TEDs, SCDs, and aspirin twice a day. 2. PT/OT. Weightbear as tolerated. Left total hip protocol. 3. Pain control, doing well with current pain regimen. 4. IV antibiotics x24 hours. 5. Disposition: He is going to be discharged home with some home health once adequately recovered.
[2018-01-23] MEDS ORDERED: TRANEXAMIC ACID INJ 1,000 MG in SODIUM CHLORIDE 0.9% 100ML 100 ML IV ONE (15:00)
[2018-01-23] MEDS: CHECK SCOPOLAMINE PATCH PLACEMENT SCH ×2 (15:29→23:55)
[2018-01-23] MEDS: SENNA 8.6 MG TAB PO SCH (21:41)
[2018-01-23] MEDS: TRIAMTERENE/HCTZ 37.5/25MG CAP PO SCH (21:42)
[2018-01-23] MEDS: DOCUSATE SODIUM 100 MG CAP PO SCH (21:42)
[2018-01-23] MEDS: ASPIRIN 81 MG ECTAB PO SCH (21:42)
[2018-01-23] MEDS: EZETIMIBE 10MG TAB PO SCH (21:43)
[2018-01-24] VITALS (8 sets, daily range): BP systolic 98–132; BP diastolic 60–78; PULSE 73–89; TEMP 36.8–37.3; O2SAT 90–98
[2018-01-24] MEDS ORDERED: DiphenhydrAMINE HCL 50 MG/ML VIAL IV PRN (01:00)
[2018-01-24] MEDS ORDERED: ZOLPIDEM TARTRATE 5 MG TAB PO PRN (01:00)
[2018-01-24] MEDS ORDERED: MoRPHine SULFATE 2 MG/ML CARP IV PRN (01:00)
[2018-01-24] MEDS: ACETAMINOPHEN 500 MG TAB PO SCH ×3 (05:47→22:18)
[2018-01-24] MEDS: KETOROLAC TROMETHAMINE 15 MG/ML VIAL IV. SCH (05:48)
[2018-01-24] MEDS: D5W AND 1/2NSS + 20MEQ KCL 1,000 ML IV SCH (05:49)
[2018-01-24 07:19] LABS: HEMATOCRIT 33.1 % (42-52); HEMOGLOBIN 11.1 g/dL (14.0-18.0); MEAN CELL VOLUME 87.3 fL (80-100); MEAN CORPUSCULAR HEMOGLOBIN 29.3 pg (25-34); MEAN CORPUSCULAR HGB CONC 33.5 g/dl (32-36); MEAN PLATELET VOLUME 9.9 fL (7.4-10.4); PLATELET COUNT 183 K/uL (130-400); RED CELL DISTRIBUTION WIDTH CV 14.2 % (11.5-14.5); RED CELL DISTRIBUTION WIDTH SD 45.4 fL (36.4-46.3); WHITE BLOOD COUNT 11.18 K/uL (4.8-10.8)
[2018-01-24] MEDS: CHECK SCOPOLAMINE PATCH PLACEMENT SCH ×3 (07:36→23:56)
[2018-01-24 07:45] LABS: BASO % 0.2 %; BASO ABS # 0.02 K/uL (0-0.2); EOS % 1.1 %; EOS ABS # 0.12 K/uL (0-0.5); IG# 0.04 K/uL (0.00-0.02); LYMPH % 10.7 %; MONO % 8.1 %; MONO ABS # 0.91 K/uL (0.11-0.59); NEUT % 79.5 %; NEUT ABS # 8.89 K/uL (1.4-6.5)
[2018-01-24 07:56] LABS: CALCIUM 7.6 mg/dl (8.5-10.1); CREATININE 1.59 mg/dl (0.60-1.40); POTASSIUM 3.8 mmol/L (3.5-5.1)
[2018-01-24] MEDS: GABAPENTIN 300 MG CAP PO SCH ×3 (08:41→22:17)
[2018-01-24] MEDS: FERROUS GLUCONATE 324 MG TAB PO SCH ×3 (08:41→17:51)
[2018-01-24] MEDS: MULTIVITAMIN TAB PO SCH (08:42)
[2018-01-24] MEDS: ASPIRIN 81 MG ECTAB PO SCH ×2 (08:42→22:19)
[2018-01-24] MEDS: DOCUSATE SODIUM 100 MG CAP PO SCH ×2 (08:42→22:17)
[2018-01-24] MEDS: PANTOprazole SOD 40 MG TAB PO SCH (08:42)
[2018-01-24] MEDS: NORTRIPTYLINE HCL 25 MG CAP PO SCH (08:42)
[2018-01-24] MEDS: TAPENTADOL ER 50 MG TABCR PO SCH ×2 (08:44→22:17)
[2018-01-24] MEDS: OXYCODONE HCL IR 5 MG TAB (IMMEDIATE RELEASE) PO PRN ×3 (08:45→22:16)
[2018-01-24] MEDS ORDERED: LORAZEPAM 0.5 MG TAB PO PRN (09:00)
--- NOTE | 2018-01-24 11:34 | PROGRESS NOTE ---
DATE: 01/24/2018 SUBJECTIVE: 62-year-old gentleman postop day 1 from a left hip replacement. He is doing well. Really not having much pain at all yet. No chest pain or shortness of breath. Not feeling dizzy or lightheaded. OBJECTIVE: VITAL SIGNS: Temperature 36.8. Vital signs stable. PHYSICAL EXAMINATION: GENERAL: Reveals a pleasant, middle-aged male. He is sitting up in bed and looks pretty comfortable this morning. LUNGS: Clear to auscultation. HEART: Regular rate and rhythm. ABDOMEN: Soft, nontender, nondistended. EXTREMITIES: Grossly neurovascularly intact except as follows: Examination of the left hip and leg reveals the dressing to be clean, dry and intact. His leg lengths are equal. Hip is located. He can dorsiflex and plantarflex his foot appropriately. He is neurologically intact. LABORATORY DATA: Hemoglobin is 11.1. Hematocrit 33.1. Electrolytes are stable. Creatinine just slightly elevated. ASSESSMENT: 62-year-old gentleman postop day 1 from a left hip replacement, doing reasonably well. Pain is controlled. His creatinine is up a little bit. PLAN: 1. DVT prophylaxis including thigh high TEDs, SCDs, and aspirin twice a day. 2. PT and OT. Weight bear as tolerated. Left total hip protocol. 3. Pain control. Doing reasonably well with current pain regimen. 4. Elevated creatinine. We are going to stop his Toradol. Will check his creatinine in the morning. 5. Disposition: He is planning to be discharged to home with some home health once adequately recovered.
[2018-01-24] MEDS ORDERED: RXC5 PO (20:57)
[2018-01-24] MEDS ORDERED: ASPI-320 PO (20:57)
[2018-01-24] MEDS ORDERED: ACET-24 PO (20:57)
[2018-01-24] MEDS ORDERED: ZOLPIDEM TARTRATE 10 MG TAB PO SCH (21:00)
--- NOTE | 2018-01-24 21:00 | Discharge Instructions ---
Discharge Instructions Date of Service Jan 24, 2018. Admission Reason for Admission: Left Hip Degenerative Joint Disease Discharge Discharge Diagnosis / Problem: Left Hip Replacement Discharge Goals Goal(s): Decrease discomfort, Improve function, Increase independence, Improve disease control, Therapeutic intervention Activity Recommendations Activity Limitations: per Instructions/Follow-up section (Total Hip Precautions ) Weightbearing Status: Left weightbearing . Instructions / Follow-Up Instructions / Follow-Up ACTIVITY RECOMMENDATIONS: Physical Therapy: * Aggressive physical therapy is not usually needed. You will learn to take care of yourself safely and walk. * Follow the "Hip Precautions Instructions." * In some cases, the social media marketing specialist at the hospital will arrange to have a therapist come to your house for the first couple of weeks to help you learn these skills. * You need to practice on your own or with the help of a family member as needed. * When you learn these skills, most of the therapy can be done on your own. Home Exercise: * You were shown a series of exercises in the hospital. Do these exercises three to four times each day including the exercises you were shown in physical therapy. Walking: * Get up and walk several times each day. For the first four weeks, try not to stand or walk for more than one hour at a time. If you do stand or walk for more than one hour, you will not hurt anything, but your leg will likely swell. * As you feel comfortable, you may change from the walker or crutches to a cane and then to independent walking. MEDICATIONS: New Medicine: * You will likely be taking one or more of these medicines: 1. Oxycodone - Take, as directed, when you need it, every four to six hours to control your pain. 2. Aspirin - Thins your blood to lessen the chance of forming a blood clot. * The most common side effects of pain medicine and iron are nausea and constipation. If nausea or constipation is too much of a problem or if you have any questions about your new medicines or doses, call [facility] at . We will try to help you manage these issues. VERY IMPORTANT TO READ AND REVIEW" Pain: * The immediate post-operative period after hip replacement surgery is often quite painful. * You are given a prescription for pain medicine. You should take it, as directed, when you need it, especially before physical therapy and before going to bed. Pain that interferes with sleep is very common and can last several months. * You will likely need pain medicine for the first two to four weeks. It will not stop all of the pain. The pain will lessen and as you feel better, you may change to milder pain medicine such as Tylenol. * The most common side effects of pain medicine are nausea and constipation, so don't take more than you need. SPECIAL CARE INSTRUCTIONS: TEDs/Elastic Stockings: * The white elastic stockings help limit swelling and prevent blood clots from forming in your legs. The more you wear them, the more they work. * Wear them for six weeks. Prevention of Infection: * Take antibiotics one hour before any dental cleaning, dental work, urological procedure, gastrointestinal procedure or any invasive surgery in order to prevent your new joint from getting infected. * You may get the antibiotics from the doctor performing the procedure or you may call our office at before and we will call in a prescription to the pharmacy of your choice. Things to Watch For: * Drainage from the incision site that occurs more than one week after your surgery. * Severely increased leg pain or swelling. * Increased redness at the incision site. * Fever above 102 degrees Fahrenheit. * Unusual chest pain or shortness of breath. * Unusual pain or burning with urination. Call [facility] at with any of the above problems or if you have any questions about your medicines or recovery. FOLLOW UP VISIT: Make an appointment to see your doctor for approximately two weeks after surgery for a progress check and staple removal by calling the office at . Current Hospital Diet Patient's current hospital diet: Regular Diet Discharge Diet Recommended Diet: Regular Diet Procedures Procedures Performed: Left total hip arthroplasty, uncemented Pending Studies Studies pending at discharge: no Medical Emergencies . Who to Call and When: Medical Emergencies: If at any time you feel your situation is an emergency, please call [phone] immediately. . Non-Emergent Contact Non-Emergency issues call your: Surgeon . "Provider Documentation" section prepared by Nba Parker. .
[2018-01-24] MEDS: TRIAMTERENE/HCTZ 37.5/25MG CAP PO SCH (22:17)
[2018-01-24] MEDS: EZETIMIBE 10MG TAB PO SCH (22:18)
[2018-01-24] MEDS: SENNA 8.6 MG TAB PO SCH (22:18)
[2018-01-25] MEDS: OXYCODONE HCL IR 5 MG TAB (IMMEDIATE RELEASE) PO PRN (03:24)
[2018-01-25] MEDS: ACETAMINOPHEN 500 MG TAB PO SCH (05:35)
[2018-01-25 06:03] VITALS: BP 117/66; PULSE 87; TEMP 36.9; O2SAT 96
[2018-01-25 06:33] LABS: CALCIUM 7.8 mg/dl (8.5-10.1); CREATININE 1.58 mg/dl (0.60-1.40); POTASSIUM 3.5 mmol/L (3.5-5.1)
[2018-01-25] MEDS: CHECK SCOPOLAMINE PATCH PLACEMENT SCH (07:39)
[2018-01-25] MEDS: FERROUS GLUCONATE 324 MG TAB PO SCH (07:41)
[2018-01-25] MEDS: DOCUSATE SODIUM 100 MG CAP PO SCH (07:41)
[2018-01-25] MEDS: GABAPENTIN 300 MG CAP PO SCH (07:42)
[2018-01-25] MEDS: MULTIVITAMIN TAB PO SCH (07:42)
[2018-01-25] MEDS: ASPIRIN 81 MG ECTAB PO SCH (07:42)
[2018-01-25] MEDS: TAPENTADOL ER 50 MG TABCR PO SCH (07:43)
[2018-01-25] MEDS: PANTOprazole SOD 40 MG TAB PO SCH (07:43)
[2018-01-25] MEDS: NORTRIPTYLINE HCL 25 MG CAP PO SCH (07:43)
--- NOTE | 2018-01-25 08:31 | PROGRESS NOTE ---
DATE: 01/25/2018 SUBJECTIVE: A 62-year-old gentleman postop day 2 from a left total hip replacement. He is doing well. Pain is controlled. No chest pain or shortness of breath. Not feeling dizzy or lightheaded. OBJECTIVE: VITAL SIGNS: Temperature is 36.9. Vital signs stable. PHYSICAL EXAMINATION: GENERAL: Reveals a healthy, pleasant, middle-aged male. He is sitting at the bedside chair and looks comfortable. LUNGS: Clear to auscultation. HEART: Has a regular rate and rhythm. ABDOMEN: Soft, nontender, nondistended. EXTREMITIES: Grossly neurovascularly intact except as follows: Examination of the left hip and leg reveals the dressing to be clean, dry and intact. Leg lengths were equal. Thigh is soft and supple. He is neurologically intact. LABORATORY DATA: Labs are stable. Creatinine stable at 1.58. ASSESSMENT: A 62-year-old gentleman postop day 2 from a left hip replacement, doing pretty well. Pain is controlled. Hip is located. He is neurologically intact. Labs are stable. PLAN: 1. DVT prophylaxis including thigh-high TEDs, SCDs, and aspirin twice a day. 2. PT/OT. Weight bear as tolerated. Left total hip protocol. 3. Pain control, doing pretty well with current pain regimen. 4. Disposition: Plan to discharge to home with some home health later today.
[2018-01-25 09:48] VITALS: BP 117/66; PULSE 87; TEMP 36.9; O2SAT 96
--- NOTE | 2018-01-30 16:28 | DISCHARGE SUMMARY ---
ADMITTING PHYSICIAN AND SURGEON: Dr. Parker. ADMITTING DIAGNOSIS: Left hip degenerative joint disease. SURGERY PERFORMED: Left total hip arthroplasty. SECONDARY DIAGNOSES: Elevated cholesterol, sleep apnea, obesity, gastroesophageal reflux disease, arthritis, BPH. CONSULTS: None obtained. HISTORY AND PHYSICAL EXAMINATION: Well documented in the patient's chart. HOSPITAL COURSE: The patient was admitted on 01/23/2018 underwent total hip arthroplasty, tolerated the procedure well. There were no complications. He was transferred to the PACU postoperatively and later to the orthopedic for further care. He was given Ancef for antibiotic prophylaxis, ANNIKA stockings, SCDs and aspirin for DVT prophylaxis. Hemoglobin, hematocrit and vital signs were monitored during his hospital stay and remained stable, did not require any blood transfusions. There were no complications. By postoperative day 2, he was tolerating a regular diet, pain was controlled with oral pain medicine. He was participating in physical therapy. Postop day 2, he was discharged home, set up with home health services, given printed discharge instructions including new prescriptions for extra strength Tylenol, aspirin, and oxycodone. Continue his home medications with the exception of his home doses of Tylenol and aspirin which were changed. Continue physical therapy, weightbearing as tolerated, ANNIKA stockings, total hip precautions. Follow up in 10-12 days or sooner if there are any problems or concerns.
== END 2018-01-25 11:42 | disposition home health service (06) | DRG 470 ==
LOC: C.ACU 05:08 → C.3E 06:35 → ENRESERV 09:39
PROVIDERS: ADMIT Orthopaedic Surgery Sports Medicine; ATTEND Orthopaedic Surgery Sports Medicine
PROC: 0SRB04A Replacement of Left Hip Joint with Ceramic on Polyethylene Synthetic Substitute, Uncemented, Open Approach (ICD-10-PCS; principal; 2018-01-23 07:15)
DX: M16.12 Unilateral primary osteoarthritis, left hip (principal); Z68.41 Body mass index [BMI] 40.0-44.9, adult; E78.5 Hyperlipidemia, unspecified; E66.9 Obesity, unspecified; K21.9 Gastro-esophageal reflux disease without esophagitis; N40.1 Benign prostatic hyperplasia with lower urinary tract symptoms

== ENCOUNTER 2024-10-25 04:52 | Inpatient (IN) ==
[2024-10-25] MEDS: SODIUM CHLORIDE 0.9% 1,000 ML IV SCH ×3 (05:31→16:17)
[2024-10-25 05:42] LABS: Basophils # (auto) 0.02 K/uL (0.00-0.20); Basophils % (auto) 0.4 %; Eosinophils # (auto) 0.07 K/uL (0.00-0.50); Eosinophils % (auto) 1.6 %; Hematocrit (blood only) 35.5 % (42.0-52.0); Hemoglobin 12.1 g/dl (14.0-18.0); Immature Granulocytes # (auto) 0.02 K/uL (0.01-0.20); Immature Granulocytes % (auto) 0.4 %; Lymphocytes # (auto) 0.77 K/uL (1.20-3.40); Lymphocytes % (auto) 17.1 %; Mean Corpuscular Hemoglobin 28.2 pg (25.0-34.0); Mean Corpuscular Hgb Conc 34.1 g/dL (32.0-36.0); Mean Corpuscular Volume 82.8 fL (80.0-100.0); Mean Platelet Volume 9.7 fL (9.4-12.4); Monocytes # (auto) 0.35 K/uL (0.11-0.59); Monocytes % (auto) 7.8 %; Neutrophils # (auto) 3.28 K/uL (1.40-6.50); Neutrophils % (auto) 72.7 %; Platelet Count 250 K/uL (130-400); RDW Coefficient of Variation 13.5 % (11.5-14.5); RDW Standard Deviation 40.3 fL (36.4-46.3); Red Blood Count 4.29 M/uL (4.70-6.10); White Blood Count 4.51 K/ul (4.8-10.8)
[2024-10-25] MEDS: CEFEPIME 2000MG 2,000 MG/20 ML SYR IV STA (05:56)
[2024-10-25] MEDS: ONDANSETRON INJ 2 MG/ML 2 ML VIAL IV STA (05:56)
--- NOTE | 2024-10-25 05:56 | Emergency Department Note ---
Impression & Plan Septic shock, Hypomagnesemia, Right lower lobe pneumonia Admit to the [facility] ED Provider Note NAME: BRUNO DAVIES AGE: 69 SEX: Male INFORMANT: Patient ED PROVIDER(S): Kenzie Landeros DO CHIEF COMPLAINT: Chills, weakness and nausea PLAN: Disposition: Admit to the [facility] MEDICAL DECISION MAKING: This is a 69-year-old male patient who woke from sleep at 3 AM with chills, weakness and nausea. Patient's explains that he was extremely off balance with gait instability. Patient had been in his usual state of health except for some diarrhea yesterday. Patient is fairly healthy individual. On presentation to the emergency department, the patient was significantly hypotensive and tachycardic and a septic protocol was performed. He was fluid resuscitated with 30 mL/kg of normal saline and given IV cefepime prophylactically. Upper respiratory bio fire testing was negative. White blood cell count was 4.5. Hemoglobin was at baseline 12.1. Lactate and procalcitonin were normal. BUN and creatinine were 38 and 1.65 respectively which are slightly elevated. Patient's magnesium was low at 1.1. This was low. Chest x-ray shows evidence of a right lower lobe infiltrate. Urine was unremarkable. Patient was given IV Zofran for nausea and oral Tylenol for his fever. Patient's blood pressure responded nicely to the IV crystalloid and he remained hemodynamically stable. I discussed the case with the [facility] and they will evaluate for further inpatient care. Care/management discussed with: senior software project manager and [facility] group Triage Nursing notes: reviewed and agree with them. Vital Signs: reviewed and remarkable for tachycardia, fever, hypotension Additional History obtained from: Patient's is at the bedside Chronic Medical/Social Conditions affecting care: none Differential Diagnosis: Influenza, COVID, pneumonia, UTI, sepsis, prostatitis, norovirus Diagnostics, independently interpreted by me: ECG: sinus tachycardia at a rate of 1 6 with PACs. There is no ST segment elevation or signs of ischemia. Cardiac Monitoring: Tachycardia at a rate of 102 Imaging studies: Portable chest x-ray:as per imbro HPI: 69 year old Male arrives for evaluation of chills, weakness and nausea. Patient woke suddenly from sleep at 3 AM with significant rigors and gait instability. Patient been feeling well throughout the day yesterday except for some watery diarrhea. PAST MEDICAL HISTORY: See Below, PAST SURGICAL HISTORY: See Below, SOCIAL HISTORY: See Below, HOME MEDICATIONS: See list ALLERGIES: See list VITALS: See Below PHYSICAL EXAMINATION: HEENT: Head - normocephalic and atraumatic. Pupils are equal, round, and reactive to light. Extraocular eye muscles are intact, and sclera are anicteric. Nose - moist nasal mucosa without discharge. Mouth - moist buccal mucosa. Oropharynx is nonerythematous and there is no tonsillar exudate or edema noted. Neck: Supple; no JVD, nuchal rigidity, cervical lymphadenopathy, or auscultated bruits. Heart: Tachycardic rate and regular rhythm. There is a normal S1 and S2 with no murmurs, clicks, or gallops appreciated. Lungs: Clear to auscultation bilaterally with no wheezes, rales, or rhonchi. Abdomen: Soft, completely nontender, nondistended, with good bowel sounds. There are no palpable pulsatile masses or hepatosplenomegaly. There is no guarding, rigidity, or rebound noted. Extremities: No evidence of cyanosis, clubbing, or edema. There are easily palpable peripheral pulses. Skin: warm and dry with good turgor and no rashes. 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 A complete history and physical was performed. Septic protocol was performed. Patient was given a dose of IV Zofran and bolused with IV normal saline solution. An order was placed for continuous cardiac monitoring. Patient was in a sinus tachycardia at a rate of 102. Patient was given dose of IV Zofran for his nausea. Upper respiratory bio fire testing was obtained. Portable chest x-ray was performed. He was then given an oral dose of Tylenol and dose of IV cefepime. Patient was noted to be hypomagnesemic and started on IV magnesium replacement. I kept the patient and his abreast of test results. I discussed the case with the [facility] Hospitalist and they will evaluate for further inpatient care. I have personally spent greater than 65minutes of critical care time in the direct management of this patient. This includes bedside care, interpretation of diagnostic studies, and testing, discussion with consultants, patient, and family members, and other required patient management activities. This 65 minutes is in excess of all separately billable procedures. Past Med/Surg History Problem List (Updated 10/25/24 @ 16:01 by Kenzie Landeros DO) Right lower lobe pneumonia (Acute) Hypomagnesemia (Acute) Septic shock (Acute) Hypokalemia Hypomagnesemia Sepsis Complex renal cyst Prostate cancer (Chronic 08/11/24) Insomnia Left thigh pain Lumbar spondylosis Status post left hip replacement Hip bursitis, left Pilonidal disease Hypogonadism in male CKD (chronic kidney disease) Prediabetes Per records, patient denies Meniere's disease Altered sensation of foot Decreased pedal pulses Leg pain Erectile dysfunction (Acute) Chronic venous insufficiency Tinnitus Bilateral hand pain Arthritis of carpometacarpal (CMC) joint of both thumbs De Quervain's tenosynovitis, bilateral Ulnar neuropathy of both upper extremities Carpal tunnel syndrome on both sides Epididymal mass Left leg weakness Knee instability Elevated PSA Preop examination Anemia, mild Medical History Varicose veins of both lower extremities Menieres disease Nerve pain Sensorineural hearing loss of both ears Tinnitus, bilateral Obstructive sleep apnea hypopnea, severe Testicular hypofunction Dyslipidemia GERD (gastroesophageal reflux disease) BPH (benign prostatic hyperplasia) Lumbar disc herniation Surgical History H/O: vasectomy History of cardiac cath History of vascular surgery History of lumbar discectomy H/O oral surgery S/P cataract surgery History of total left hip arthroplasty History of lumbar surgery Family History Grandmother (Maternal) Myocardial infarction Diabetes Congestive heart failure Heart disease Hypertension Grandfather (Maternal) Myocardial infarction Congestive heart failure Mother Myocardial infarction Diabetes Stroke Hypertension Heart disease S/P CABG x 3 H/O heart artery stent Brother Myocardial infarction Diabetes Heart disease Hypertension Father Bladder cancer History of heart valve replacement Brother No problems noted. Sister Thyroid disease Long COVID Daughter No problems noted. Daughter Sleep apnea Obesity Prediabetes PCOS (polycystic ovarian syndrome) Other No family history of adverse response to anesthesia No family history of bleeding disorder Denies family history of Ovarian cancer Prostate cancer Breast cancer Colorectal cancer Social History Smoking Status: Never smoker Second Hand Exposure: Yes; Do You Dip or Chew Tobacco: No; Hx Alcohol Use: Yes Alcohol type: hard liquor Alcohol Intake Frequency: 2-4 x/Month Hx Substance Use: No Preferred Language: Chadian Communication Ability: Effective Visual Impairment: No Limitations Hearing Ability: Normal Osteopathic Resident Required: No Beliefs That Will Affect Care: None marital status: Current Living Situation: Spouse current occupational status: retired 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 [employer] How many Children do You have: 3 Other Information That Helps Us Care for You: No Feels Safe at Home: Yes Safety Concerns: Feels Safe At This Time Diet: regular caffeine: Yes (Mountain Dew) during the past year weight has: remained stable Dental Care, Regularly: Yes Physical Activity Frequency: Other Seatbelt Use: always Sunscreen Use: Yes Assistive Devices: Glasses Assistive Devices Comment: upper and lower denture implant Allergies Allergies Allergy/AdvReac Type Severity Reaction Status Date / Time simvastatin AdvReac Unknown muscle Verified 10/25/24 08:06 soreness Home Meds Home Medications Medication Instructions Recorded Confirmed ibuprofen 200 mg tablet (Advil) 600 - 800 mg PO TID PRN Pain 06/19/18 10/25/24 aspirin 81 mg tablet,delayed 81 mg PO QPM 07/22/20 10/25/24 release Previous Rx's Medication Instructions Recorded gabapentin 600 mg tablet 600 mg PO TID #270 tabs 11/26/23 sildenafil 100 mg tablet 100 mg PO ONCE PRN sexual activity 01/15/24 #30 tabs terazosin 5 mg capsule 5 mg PO HS #90 caps 04/25/24 testosterone (AndroGel) 2 pump topical DAILY #75 grams 05/19/24 rosuvastatin 5 mg tablet 5 mg PO QPM #90 tabs 06/25/24 lorazepam 0.5 mg tablet (Ativan) 0.5 mg PO DAILY PRN anxiety #30 09/03/24 tabs zolpidem 10 mg tablet (Ambien) 10 mg PO HS PRN insomnia #30 tabs 09/03/24 pantoprazole 40 mg tablet,delayed 40 mg PO QPM #90 tabs 09/29/24 release triamterene 37.5 1 cap PO QPM #90 caps 09/30/24 mg-hydrochlorothiazide 25 mg capsule Results & Data (ED) Vital Signs Vital Signs - 24 hr 10/25/24 04:58 10/25/24 05:15 10/25/24 05:20 Temperature 38.2 C H Temperature Source Oral Pulse Rate 100 H Pulse Rate from SpO2 Sensor Respiratory Rate 20 20 Respiratory Effort / Characteristics Non-Labored Spontaneous Non-Labored Spontaneous Respiratory Depth Normal Normal Respiratory Pattern Regular Regular Blood Pressure 93/62 L Blood Pressure [Right Arm] 112/64 Blood Pressure Mean 72 Blood Pressure Mean [Right Arm] 80 Blood Pressure Position Sitting Pulse Oximetry 93 87 L 94 Oxygen Delivery Method Room Air Room Air Nasal Cannula Oxygen Flow Rate 2 Sepsis Recent Fever Within 48 Hours Yes Sepsis New/Unexplained Change in Mental Status N/A Sepsis Action Taken by Nursing No Action Required 10/25/24 05:22 10/25/24 05:40 10/25/24 07:00 Temperature Temperature Source Pulse Rate 107 H 94 H Pulse Rate from SpO2 Sensor 75 Respiratory Rate 18 Respiratory Effort / Characteristics Respiratory Depth Respiratory Pattern Blood Pressure 127/77 Blood Pressure [Right Arm] Blood Pressure Mean 93 Blood Pressure Mean [Right Arm] Blood Pressure Position Pulse Oximetry 94 94 Oxygen Delivery Method Room Air Nasal Cannula Oxygen Flow Rate 2 Sepsis Recent Fever Within 48 Hours Sepsis New/Unexplained Change in Mental Status Sepsis Action Taken by Nursing 10/25/24 07:42 10/25/24 07:49 Temperature 38.2 C H Temperature Source Oral Pulse Rate 98 H Pulse Rate from SpO2 Sensor 91 H Respiratory Rate 17 Respiratory Effort / Characteristics Respiratory Depth Respiratory Pattern Blood Pressure 127/77 Blood Pressure [Right Arm] Blood Pressure Mean 93 Blood Pressure Mean [Right Arm] Blood Pressure Position Pulse Oximetry 94 Oxygen Delivery Method Room Air Oxygen Flow Rate Sepsis Recent Fever Within 48 Hours Sepsis New/Unexplained Change in Mental Status Sepsis Action Taken by Nursing Laboratory Data 10/25/24 12:56 10/25/24 12:56 Lab Results 10/25/24 10/25/24 10/25/24 Range/Units 05:25 05:40 07:30 WBC 4.51 L (4.8-10.8) K/ul RBC 4.29 L (4.70-6.10) M/uL Hgb 12.1 L (14.0-18.0) g/dl Hct 35.5 L (42.0-52.0) % MCV 82.8 (80.0-100.0) fL MCH 28.2 (25.0-34.0) pg MCHC 34.1 (32.0-36.0) g/dL RDW Std Deviation 40.3 (36.4-46.3) fL RDW Coeff of Braxton 13.5 (11.5-14.5) % Plt Count 250 (130-400) K/uL MPV 9.7 (9.4-12.4) fL Immature Gran % (Auto) 0.4 % Neut % (Auto) 72.7 % Lymph % (Auto) 17.1 % [place] % (Auto) 7.8 % Eos % (Auto) 1.6 % Baso % (Auto) 0.4 % Neut # (Auto) 3.28 (1.40-6.50) K/uL Lymph # (Auto) 0.77 L (1.20-3.40) K/uL [place] # (Auto) 0.35 (0.11-0.59) K/uL Eos # (Auto) 0.07 (0.00-0.50) K/uL Baso # (Auto) 0.02 (0.00-0.20) K/uL Immature Gran # (Auto) 0.02 (0.01-0.20) K/uL Sodium 139 (136-145) mmol/L Potassium 3.4 L (3.5-5.1) mmol/L Chloride 105 (98-107) mmol/L Carbon Dioxide 24 (21-32) mmol/L Anion Gap 10 (3-11) BUN 38 H (6-23) mg/dl Creatinine 1.65 H (0.6-1.4) mg/dl Est Cr Clr Drug Dosing 50.6 ml/min eGFR 45.23 BUN/Creatinine Ratio 23.0 H (10-20) Glucose 135 H (70-99(Fasting)) mg/dl Lactate 1.5 (0.4-2.0) mmol/L Calcium 8.6 (8.6-10.3) mg/dl Magnesium 1.1 L (1.7-2.4) mg/dl Total Bilirubin 0.4 (0.2-1.0) mg/dl Direct Bilirubin 0.1 (0-0.2) mg/dl AST 30 (13-39) U/L ALT 18 (7-52) U/L Alkaline Phosphatase 80 (34-104) U/L Troponin I High Sens 17.0 (0-20) pg/ml C-Reactive Protein 3.39 H (0-0.5) mg/dl B-Natriuretic Peptide (0-100) pg/ml Total Protein 7.1 (6.0-8.3) gm/dl Albumin 3.8 (3.4-5.0) gm/dl Procalcitonin 0.13 (0-0.5) ng/ml Urine Color Yellow Urine Appearance Clear (Clear) Urine pH 5.0 (4.5-7.5) Ur Specific Moore 1.015 (1.000-1.030) Urine Protein Negative (Negative) Urine Glucose (UA) Negative (Negative) Urine Ketones Negative (Negative) Urine Blood Negative (Negative) Urine Nitrite Negative (Negative) Urine Bilirubin Negative (Negative) Urine Urobilinogen Negative (Negative) Ur Leukocyte Esterase Negative (Negative) Adenovirus (PCR) Not Detected (NotDetected) B. pertussis DNA (PCR) Not Detected (NotDetected) B.parapertussis DNA PCR Not Detected (NotDetected) C. pneumoniae DNA (PCR) Not Detected (NotDetected) Coronavirus OC43 (PCR) Not Detected (NotDetected) Coronavirus HKU1 (PCR) Not Detected (NotDetected) Coronavirus 229E (PCR) Not Detected (NotDetected) SARS-CoV-2 (PCR) Not Detected (NotDetected) Coronavirus NL63 (PCR) Not Detected (NotDetected) Human Metapneumovir PCR Not Detected (NotDetected) Influenza Type A (PCR) Not Detected (NotDetected) Influenza Type B (PCR) Not Detected (NotDetected) M. pneumoniae (PCR) Not Detected (NotDetected) Parainfluenza 1 (PCR) Not Detected (NotDetected) Parainfluenza 2 (PCR) Not Detected (NotDetected) Parainfluenza 3 (PCR) Not Detected (NotDetected) Parainfluenza 4 (PCR) Not Detected (NotDetected) RSV (PCR) Not Detected (NotDetected) Entero/Rhino (PCR) Not Detected (NotDetected) 10/25/24 Range/Units 08:20 WBC (4.8-10.8) K/ul RBC (4.70-6.10) M/uL Hgb (14.0-18.0) g/dl Hct (42.0-52.0) % MCV (80.0-100.0) fL MCH (25.0-34.0) pg MCHC (32.0-36.0) g/dL RDW Std Deviation (36.4-46.3) fL RDW Coeff of Braxton (11.5-14.5) % Plt Count (130-400) K/uL MPV (9.4-12.4) fL Immature Gran % (Auto) % Neut % (Auto) % Lymph % (Auto) % [place] % (Auto) % Eos % (Auto) % Baso % (Auto) % Neut # (Auto) (1.40-6.50) K/uL Lymph # (Auto) (1.20-3.40) K/uL [place] # (Auto) (0.11-0.59) K/uL Eos # (Auto) (0.00-0.50) K/uL Baso # (Auto) (0.00-0.20) K/uL Immature Gran # (Auto) (0.01-0.20) K/uL Sodium (136-145) mmol/L Potassium (3.5-5.1) mmol/L Chloride (98-107) mmol/L Carbon Dioxide (21-32) mmol/L Anion Gap (3-11) BUN (6-23) mg/dl Creatinine (0.6-1.4) mg/dl Est Cr Clr Drug Dosing ml/min eGFR BUN/Creatinine Ratio (10-20) Glucose (70-99(Fasting)) mg/dl Lactate (0.4-2.0) mmol/L Calcium (8.6-10.3) mg/dl Magnesium (1.7-2.4) mg/dl Total Bilirubin (0.2-1.0) mg/dl Direct Bilirubin (0-0.2) mg/dl AST (13-39) U/L ALT (7-52) U/L Alkaline Phosphatase (34-104) U/L Troponin I High Sens (0-20) pg/ml C-Reactive Protein (0-0.5) mg/dl B-Natriuretic Peptide 56 (0-100) pg/ml Total Protein (6.0-8.3) gm/dl Albumin (3.4-5.0) gm/dl Procalcitonin (0-0.5) ng/ml Urine Color Urine Appearance (Clear) Urine pH (4.5-7.5) Ur Specific Moore (1.000-1.030) Urine Protein (Negative) Urine Glucose (UA) (Negative) Urine Ketones (Negative) Urine Blood (Negative) Urine Nitrite (Negative) Urine Bilirubin (Negative) Urine Urobilinogen (Negative) Ur Leukocyte Esterase (Negative) Adenovirus (PCR) (NotDetected) B. pertussis DNA (PCR) (NotDetected) B.parapertussis DNA PCR (NotDetected) C. pneumoniae DNA (PCR) (NotDetected) Coronavirus OC43 (PCR) (NotDetected) Coronavirus HKU1 (PCR) (NotDetected) Coronavirus 229E (PCR) (NotDetected) SARS-CoV-2 (PCR) (NotDetected) Coronavirus NL63 (PCR) (NotDetected) Human Metapneumovir PCR (NotDetected) Influenza Type A (PCR) (NotDetected) Influenza Type B (PCR) (NotDetected) M. pneumoniae (PCR) (NotDetected) Parainfluenza 1 (PCR) (NotDetected) Parainfluenza 2 (PCR) (NotDetected) Parainfluenza 3 (PCR) (NotDetected) Parainfluenza 4 (PCR) (NotDetected) RSV (PCR) (NotDetected) Entero/Rhino (PCR) (NotDetected) Administered Medications Gabapentin (Gabapentin 600 Mg Tab) 600 mg PO TID [facility] Stop: 11/24/24 12:11 Last Admin: 10/25/24 15:00 Dose: 600 mg Documented By: Admin: 10/25/24 12:45 Dose: 600 mg Documented By: JOSE Heparin Sodium (Porcine) (Heparin Sod 5,000 Unit/0.5 Ml Vial) 5,000 units SQ Q12 NEELAM Stop: 11/24/24 08:59 Last Admin: 10/25/24 11:43 Dose: 5,000 units Documented By: MR Discontinued Medications Acetaminophen (Acetaminophen 500 Mg Tab) 1,000 mg PO NOW STA Stop: 10/25/24 05:13 Last Admin: 10/25/24 06:22 Dose: 1,000 mg Documented By: ITA Sodium Chloride (Nss) 1,000 mls @ 999 mls/hr IV .Q1H1M NEELAM Stop: 10/25/24 07:15 Last Infusion: 10/25/24 09:51 Dose: Infused Documented By: Admin: 10/25/24 06:22 Dose: 999 mls/hr Documented By: Infusion: 10/25/24 06:11 Dose: Infused Documented By: Admin: 10/25/24 05:31 Dose: 999 mls/hr Documented By: ITA Cefepime HCl (Maxipime 2000mg) 2,000 mg in 20 mls @ 5 mls/min IV NOW STA; Protocol Stop: 10/25/24 05:33 Last Admin: 10/25/24 05:56 Dose: 5 mls/min Documented By: ITA Magnesium Sulfate/Dextrose (Magnesium Sulfate / D5w) 1 gm in 100 mls @ 100 mls/hr IV NOW STA Stop: 10/25/24 07:13 Last Infusion: 10/25/24 09:51 Dose: Infused Documented By: Admin: 10/25/24 06:22 Dose: 100 mls/hr Documented By: ITA Sodium Chloride (Nss) 500 mls @ 125 mls/hr IV .Q4H NEELAM Stop: 10/25/24 10:44 Last Infusion: 10/25/24 11:50 Dose: Infused Documented By: Admin: 10/25/24 06:47 Dose: 125 mls/hr Documented By: ITA Magnesium Sulfate/Dextrose (Magnesium Sulfate / D5w) 1 gm in 100 mls @ 50 mls/hr IV Q2H NEELAM Stop: 10/25/24 12:29 Last Infusion: 10/25/24 13:55 Dose: Infused Documented By: Admin: 10/25/24 11:45 Dose: 50 mls/hr Documented By: Infusion: 10/25/24 11:45 Dose: Infused Documented By: Admin: 10/25/24 09:56 Dose: 50 mls/hr Documented By: Doxycycline Hyclate 100 mg/ (Dextrose) 100 mls @ 50 mls/hr IV ONE STA Stop: 10/25/24 12:26 Last Infusion: 10/25/24 13:35 Dose: Infused Documented By: Admin: 10/25/24 11:43 Dose: 50 mls/hr Documented By: Sodium Chloride (Nss) 1,000 mls @ 999 mls/hr IV .Q1H1M NEELAM Stop: 10/25/24 12:36 Last Infusion: 10/25/24 13:32 Dose: Infused Documented By: Admin: 10/25/24 12:31 Dose: 999 mls/hr Documented By: JOSE Ondansetron HCl (Ondansetron Inj 2 Mg/Ml 2 Ml Vial) 4 mg IV NOW STA Stop: 10/25/24 05:31 Last Admin: 10/25/24 05:56 Dose: 4 mg Documented By: ITA Potassium Chloride (Potassium Chloride Crtab 20 Meq Tabcr) 20 meq PO NOW STA Stop: 10/25/24 08:25 Last Admin: 10/25/24 09:56 Dose: 20 meq Documented By: MR Imaging Data Radiologist's Impression: Chest X-Ray 10/25/24 05:10 EXAM: XR chest 1V portable CLINICAL HISTORY: SEPSIS. TECHNIQUE: An X-ray image of the chest is obtained in 1 AP projection. COMPARISON: 01/10/2018 FINDINGS: Poor inspiratory effort. Pulmonary Parenchyma: Bilateral prominent bronchovascular markings are suggestive of congestive changes. Prominent pulmonary reticulations and right basal atelectatic changes. Faint opacities are seen in the right lower lung lobe. No evidence of pleural effusion or pleural thickening. Heart and Mediastinum: Heart size and shape are normal. No mediastinal widening or masses. No hilar or mediastinal lymphadenopathy. Bony Thorax: The bony thorax appears intact without fractures or deformities. Soft Tissues: Soft tissues overlying the chest wall are unremarkable. IMPRESSION: 1. Poor inspiratory effort. 2. Bilateral prominent bronchovascular markings are suggestive of congestive changes. 3. Prominent pulmonary reticulations and right basal atelectatic changes are suggestive of interstitial pulmonary changes. 4. Faint opacities are seen in the right lower lung lobe concerning lung infection. New finding. 5. Findings have progressed since the prior study dated 2017. 6. Advise clinical correlation and follow-up or HRCT assessment if clinically indicated. Electronically signed by Marlene Pa 10-25-2024 06:23 AM Discharge Plan Visit Data Chief Complaint: Weakness Stated Complaint: SHAKING,CHILLS,WEAKNESS,SLIGHT AMS ED Provider: Kenzie Landeros Discharge Problem: Septic shock, Hypomagnesemia, Right lower lobe pneumonia Patient Disposition: Home - Self-Care Discharge Instructions Interventions: ED Discharge Assessment Last Done: 10/25/24 12:00
[2024-10-25 05:58] LABS: Albumin Level 3.8 gm/dl (3.4-5.0); Bilirubin Direct 0.1 mg/dl (0-0.2); Bilirubin,Total 0.4 mg/dl (0.2-1.0); Calcium 8.6 mg/dl (8.6-10.3); Creatinine Clr Calc Pharmacy 50.6 ml/min; Magnesium 1.1 mg/dl (1.7-2.4); Potassium 3.4 mmol/L (3.5-5.1); Total Protein 7.1 gm/dl (6.0-8.3)
[2024-10-25] MEDS: ACETAMINOPHEN 500 MG TAB PO STA (06:22)
[2024-10-25] MEDS: MAGNESIUM SULFATE / D5W 1 GM/100 ML BAG IV STA (06:22)
--- NOTE | 2024-10-25 06:23 | XRay Report ---
EXAM: XR chest 1V portable CLINICAL HISTORY: SEPSIS. TECHNIQUE: An X-ray image of the chest is obtained in 1 AP projection. COMPARISON: 01/10/2018 FINDINGS: Poor inspiratory effort. Pulmonary Parenchyma: Bilateral prominent bronchovascular markings are suggestive of congestive changes. Prominent pulmonary reticulations and right basal atelectatic changes. Faint opacities are seen in the right lower lung lobe. No evidence of pleural effusion or pleural thickening. Heart and Mediastinum: Heart size and shape are normal. No mediastinal widening or masses. No hilar or mediastinal lymphadenopathy. Bony Thorax: The bony thorax appears intact without fractures or deformities. Soft Tissues: Soft tissues overlying the chest wall are unremarkable. IMPRESSION: 1. Poor inspiratory effort. 2. Bilateral prominent bronchovascular markings are suggestive of congestive changes. 3. Prominent pulmonary reticulations and right basal atelectatic changes are suggestive of interstitial pulmonary changes. 4. Faint opacities are seen in the right lower lung lobe concerning lung infection. New finding. 5. Findings have progressed since the prior study dated 2017. 6. Advise clinical correlation and follow-up or HRCT assessment if clinically indicated. Electronically signed by Marlene Pa 10-25-2024 06:23 AM
[2024-10-25 06:46] LABS: Adenovirus PCR Not Detected (NotDetected); Bordetella parapertussis PCR Not Detected (NotDetected); Bordetella pertussis PCR Not Detected (NotDetected); Chlamydia pneumoniae PCR Not Detected (NotDetected); Coronavirus 229E PCR Not Detected (NotDetected); Coronavirus CoV-2 (COVID19)PCR Not Detected (NotDetected); Coronavirus HKU1 PCR Not Detected (NotDetected); Coronavirus NL63 PCR Not Detected (NotDetected); Coronavirus OC43PCR Not Detected (NotDetected); Human Metapneumovirus PCR Not Detected (NotDetected); Influenza A PCR Not Detected (NotDetected); Influenza B PCR Not Detected (NotDetected); Mycoplasma pneumoniae PCR Not Detected (NotDetected); Parainfluenza Virus 1 PCR Not Detected (NotDetected); Parainfluenza Virus 2 PCR Not Detected (NotDetected); Parainfluenza Virus 3 PCR Not Detected (NotDetected); Parainfluenza Virus 4 PCR Not Detected (NotDetected); Respiratory Syncytial VirusPCR Not Detected (NotDetected); Rhinovirus/Enterovirus PCR Not Detected (NotDetected)
[2024-10-25] MEDS: SODIUM CHLORIDE 0.9% 500 ML IV SCH (06:47)
[2024-10-25 07:56] LABS: Appearance Urine Clear (Clear); Bilirubin Urine Negative (Negative); Blood Urine Negative (Negative); Color Urine Yellow; Glucose Urine UA Negative (Negative); Ketones Urine Negative (Negative); Leukocyte Esterase Urine Negative (Negative); Nitrite Urine Negative (Negative); Protein Urine Negative (Negative); Specific Gravity Urine 1.015 (1.000-1.030); Urobilinogen Urine Negative (Negative)
[2024-10-25] MEDS ORDERED: ONDANSETRON INJ 2 MG/ML 2 ML VIAL IV PRN (08:36)
--- NOTE | 2024-10-25 08:56 | History & Physical Report ---
<Statement entered by Modesta Zamarripa MD - 10/25/24 19:57> I have reviewed vital signs, chart notes, labs and imaging. I have personally seen, evaluated and examined the patient. I have also discussed the management of the patient with the [facility] and I agree with the exam findings documented in the history and physical examination and the documented assessment and plan unless otherwise stated below. 69-year-old man with Alonso's recent diagnosis of low-grade prostate cancer who awoke overnight with severe rigors/chills, evaluated in the ED found to have sepsis. previous day he had had some mild diarrhea without emesis, no other sick contact. Initially seemed like a viral syndrome however Respiratory bio fire negative and he did have some subtle abnormalities in right lower lobe on his chest x-ray without cough. Throughout the day he had persistent sepsis physiology and true fever, mild fluid responsive hypotension. Procalcitonin was normal on initial labs but on repeat several hours later significantly elevated at >4. on my exam he had coarse bibasilar crackles. sepsis due to community-acquired pneumonia, right lower lobe. mild hypoxia 87% on room air in the ED, 94% on 2 L - given third liter bolus this morning and continue NS at 125 an hour, remains mildly hypotensive but maps all greater than 70 if worsens he will need pressors - admitted to PCU - continue cefepime and doxycycline - follow blood cultures pending, not producing sputum for culture Abnormal chest x-ray question of interstitial lung disease/fibrosis of right base and pulmonary edema based on chest x-ray - BNP was 56, I do not think he has pulmonary edema, no cardiac history and no other signs of symptoms of heart failure, monitor - he also has no symptoms of chronic lung disease such as chronic cough or dyspnea. would get a repeat two-view chest x-ray as an outpatient in 4 to 6 weeks, if abnormalities persist he should have a high-res chest CT severe hypomagnesemia, hypokalemia replaced and normalized, repeat labs in a.m. anemia with B12 level of 554 on September 16 mild leukopenia likely due to sepsis CKD stage III with creatinine at baseline low-grade prostate cancer, prostatic hypertrophy - has urology follow-up scheduled. urinalysis was completely negative severe obstructive sleep apneacontinue CPAP I updated his by phone this afternoon Date of Service October 25, 2024 Assessment & Plan (1) Sepsis: (2) Hypomagnesemia: (3) Hypokalemia: (4) CKD (chronic kidney disease): Plan This is a 69-year-old gentleman with past medical history of carpal tunnel, hypertension, CKD, prediabetic, prostate cancer who presented to the emergency department on 10/25/2024 with a chief complaint of chills, nausea, and weakness. Patient originally hypoxic on room air at 87% but at time of presentation he was 94% on room air. #Sepsis POA Patient met sepsis criteria when presented to ED w/ hypotension, leukopenia, fever, tachycardia, hypoxic. Symptoms consistent with viral etiology however the biofire has ruled out various viral causes. EKG on admission w/ tachycardia. CBC w/ leukopenia of 4.51, hgb 12.1. BNP 56, troponin negative at 17 Procal 0.13, CRP pending BC pending CXR: poor inspiratory effort. b/l prominent bronchovascular markings suggestive of congestive changes. faint opacities seen in RLL concerning for infx. Consider Chest CT on outpatient basis - patient w/o SOB and hypoxic seems to have resolved. Respiratory bio fire negative urinalysis negative GI biofire pending - patient w/ diarrhea day prior to these symptoms taking place. IV Cefepime given in ED - continue Added Doxycycline IV BID s/p 2L IVF in ED + 1 additional L of NSS #hypomagnesemia, hypokalemia Mag 1.1 on admission s/p 3 bags IV mag K 3.4 on admission s/p 20meq PO potassium Recheck BMP around 1300 to reassess for any further corrections needed. #CKD/STEPHEN Creatine 1.65 on admission. Baseline appears to be 1.4-1.5 s/p IVF plan to reassess renal function on repeat BMP. Chronic conditions: SANJANA: CPAP GERD: PPI HLD: statin Insomnia: zolpidem prn Neuropathy: gabapentin DVT prophylaxis: Heparin Code status: full Updated at bedside 10/25 This case was discussed with Dr. Zamarripa at time of admission. History of Present Illness Primary Care Provider: Anton Negron MD This is a 69-year-old gentleman with past medical history of carpal tunnel, hypertension, CKD, prediabetic, prostate cancer who presented to the emergency department on 10/25/2024 with a chief complaint of chills, nausea, and weakness. While in the emergency department, patient appeared septic with hypotension, tachycardia. He was hypoxic with an oxygen saturation of 87% on room air. He had a low-grade fever along with leukopenia. His lactic acid, troponin, and procalcitonin were all within normal limits. UA and LFTs also with in normal limits. Chest x-ray with faint right lower lobe opacities, right lower lobe atelectasis and possible interstitial disease. BioFire negative. Patient improved with 2 L of IV fluids and had a dose of IV cefepime while in the emergency department. Patient was seen and examined this morning with his at bedside. Patient reports that overnight he awoke suddenly with chills. Patient's states that he seemed like his mental status was altered as well. Patient reports some nausea along with this. He states that he did not have any vomiting although he felt like he was going to. Prior to this event, he was experiencing some diarrhea yesterday. He denies any abdominal pain. He denies any chest pain, shortness of breath. He denies any urinary symptoms including frequency, urgency, or dysuria. Denies any lower extremity edema. He has been febrile since reporting to the ER however he states that his chills has subsided. He states that he does feel improved since reporting here. Allergies Allergy/AdvReac Type Severity Reaction Status Date / Time simvastatin AdvReac Unknown muscle Verified 10/25/24 08:06 soreness Home Medications Medication Instructions Recorded Confirmed Type ibuprofen 200 mg tablet (Advil) 600 - 800 mg PO TID PRN Pain 06/19/18 10/25/24 History aspirin 81 mg tablet,delayed 81 mg PO QPM 07/22/20 10/25/24 History release gabapentin 600 mg tablet 600 mg PO TID #270 tabs 11/26/23 10/25/24 Rx sildenafil 100 mg tablet 100 mg PO ONCE PRN sexual activity 01/15/24 10/25/24 Rx #30 tabs terazosin 5 mg capsule 5 mg PO HS #90 caps 04/25/24 10/25/24 Rx testosterone (AndroGel) 2 pump topical DAILY #75 grams 05/19/24 10/25/24 Rx rosuvastatin 5 mg tablet 5 mg PO QPM #90 tabs 09/25/24 01/25/25 Rx lorazepam 0.5 mg tablet (Ativan) 0.5 mg PO DAILY PRN anxiety #30 09/03/24 Rx tabs zolpidem 10 mg tablet (Ambien) 10 mg PO HS PRN insomnia #30 tabs 09/03/24 10/25/24 Rx pantoprazole 40 mg tablet,delayed 40 mg PO QPM #90 tabs 09/29/24 10/25/24 Rx release triamterene 37.5 1 cap PO QPM #90 caps 09/30/24 10/25/24 Rx mg-hydrochlorothiazide 25 mg capsule Past Med/Surg History Problem List (Updated 10/25/24 @ 08:52 by Tati Steele PA-C) Hypokalemia Hypomagnesemia Sepsis Complex renal cyst Prostate cancer (Chronic 08/11/24) Insomnia Left thigh pain Lumbar spondylosis Status post left hip replacement Hip bursitis, left Pilonidal disease Hypogonadism in male CKD (chronic kidney disease) Prediabetes Per records, patient denies Meniere's disease Altered sensation of foot Decreased pedal pulses Leg pain Erectile dysfunction (Acute) Chronic venous insufficiency Tinnitus Bilateral hand pain Arthritis of carpometacarpal (CMC) joint of both thumbs De Quervain's tenosynovitis, bilateral Ulnar neuropathy of both upper extremities Carpal tunnel syndrome on both sides Epididymal mass Left leg weakness Knee instability Elevated PSA Preop examination Anemia, mild Medical History Varicose veins of both lower extremities Menieres disease Nerve pain Sensorineural hearing loss of both ears Tinnitus, bilateral Obstructive sleep apnea hypopnea, severe Testicular hypofunction Dyslipidemia GERD (gastroesophageal reflux disease) BPH (benign prostatic hyperplasia) Lumbar disc herniation Surgical History H/O: vasectomy History of cardiac cath History of vascular surgery History of lumbar discectomy H/O oral surgery S/P cataract surgery History of total left hip arthroplasty History of lumbar surgery Family History Grandmother (Maternal) Myocardial infarction Diabetes Congestive heart failure Heart disease Hypertension Grandfather (Maternal) Myocardial infarction Congestive heart failure Mother Myocardial infarction Diabetes Stroke Hypertension Heart disease S/P CABG x 3 H/O heart artery stent Brother Myocardial infarction Diabetes Heart disease Hypertension Father Bladder cancer History of heart valve replacement Brother No problems noted. Sister Thyroid disease Long COVID Daughter No problems noted. Daughter Sleep apnea Obesity Prediabetes PCOS (polycystic ovarian syndrome) Other No family history of adverse response to anesthesia No family history of bleeding disorder Denies family history of Ovarian cancer Prostate cancer Breast cancer Colorectal cancer Social History Smoking Status: Never smoker Second Hand Exposure: Yes; Do You Dip or Chew Tobacco: No; Hx Alcohol Use: No (Social ) Hx Substance Use: No Preferred Language: Hungarian Communication Ability: Effective Visual Impairment: No Limitations Hearing Ability: Normal Satellite Communications Engineer Required: No Beliefs That Will Affect Care: None marital status: Current Living Situation: Spouse current occupational status: retired 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 [employer] How many Children do You have: 3 Feels Safe at Home: Yes Diet: regular caffeine: Yes (Mountain Dew) during the past year weight has: remained stable Dental Care, Regularly: Yes Physical Activity Frequency: Other Seatbelt Use: always Sunscreen Use: Yes Physical Exam Constitutional: WD/WN, vitals as above Eyes: PERRL, conjunctivae normal, anicteric sclerae Respiratory: CTA throughout, slightly diminished lung sounds in RLL Cardiovascular: RRR, no murmur, no edema Gastrointestinal (Abdomen): normal bowel sounds, soft, nontender, no hepatosplenomegaly Psychiatric: A+Ox3, euthymic affect Results & Data Results & Data Vital Signs (Past 12 Hours) Vital Signs Temp Pulse Resp BP BP Pulse Ox O2 Del Method 10/25/24 07:49 38.2 C H 10/25/24 07:00 94 H 18 127/77 94 Nasal Cannula 10/25/24 05:40 94 Room Air 10/25/24 05:22 107 H 10/25/24 05:20 94 Nasal Cannula 10/25/24 05:15 20 112/64 87 L Room Air 10/25/24 04:58 38.2 C H 100 H 20 93/62 L 93 Room Air O2 Flow Rate 10/25/24 07:49 10/25/24 07:00 2 10/25/24 05:40 10/25/24 05:22 10/25/24 05:20 2 10/25/24 05:15 10/25/24 04:58 Code Status & VTE Plan VTE Prophylaxis Plan VTE Prophylaxis will be ordered: Yes PG Care Time/CCT Total # of Minutes Spent Total Time Spent with Patient: Total time spent is greater than 50% in coordination of care (as documented) at patient's floor/unit and/or counseling patient: Coding Level of Care Code 73987 INT INP/OBS CARE 3/75MIN Diagnoses Sepsis A41.9 Hypomagnesemia E83.42 Hypokalemia E87.6 CKD (chronic kidney disease) N18.9
[2024-10-25] MEDS: POTASSIUM CHLORIDE CRTAB 20 MEQ TABCR PO STA (09:56)
[2024-10-25] MEDS: MAGNESIUM SULFATE / D5W 1 GM/100 ML BAG IV SCH (09:56)
--- NOTE | 2024-10-25 11:25 | Electrocardiogram Report ---
Test Reason : Blood Pressure : */* mmHG Vent. Rate : 106 BPM Atrial Rate : 106 BPM P-R Int : 176 ms QRS Dur : 90 ms QT Int : 324 ms P-R-T Axes : 52 -9 47 degrees QTcB Int : 430 ms Sinus tachycardia with Premature atrial complexes Nonspecific ST abnormality Abnormal ECG When compared with ECG of 10-Apr-2023 11:47, Premature atrial complexes are now Present SD interval has decreased Vent. rate has increased by 55 bpm QRS duration has decreased T wave amplitude has decreased in Lateral leads Confirmed by Nadiya Valle ([id number]) on 10/25/2024 11:25:15 AM Referred By: Confirmed By: Nadiya Valle
[2024-10-25] MEDS: HEPARIN SOD 5,000 UNIT/0.5 ML VIAL SQ SCH (11:43)
[2024-10-25] MEDS: DOXYCYCLINE HYCLATE 100 MG in DEXTROSE 5% MINI-B 100 ML IV STA (11:43)
[2024-10-25] MEDS ORDERED: ZOLPIDEM TARTRATE 5 MG TAB PO PRN (12:25)
[2024-10-25] MEDS: GABAPENTIN 600 MG TAB PO SCH (12:45)
[2024-10-25 13:23] LABS: Hematocrit (blood only) 30.2 % (42.0-52.0); Hemoglobin 10.1 g/dl (14.0-18.0)
[2024-10-25 13:36] LABS: BUN Creatinine Ratio 20.7 (10-20); Calcium 7.5 mg/dl (8.6-10.3); Creatinine Clr Calc Pharmacy 49.3 ml/min; Magnesium 1.8 mg/dl (1.7-2.4); Potassium 3.7 mmol/L (3.5-5.1)
[2024-10-25] MEDS: ACETAMINOPHEN 325 MG TAB PO PRN (16:21)
[2024-10-25] MEDS: CEFEPIME 2000MG 2,000 MG/20 ML SYR IV SCH (17:53)
[2024-10-25] MEDS: ASPIRIN 81 MG ECTAB PO SCH (20:29)
[2024-10-25] MEDS: PANTOprazole 40 MG TAB PO SCH (20:29)
[2024-10-25] MEDS: ROSUVASTATIN CALCIUM 5 MG TAB PO SCH (20:30)
[2024-10-25] MEDS ORDERED: TERAZOSIN HCL 5 MG CAP PO SCH (21:00)
[2024-10-25] MEDS: DOXYCYCLINE HYCLATE 100 MG in DEXTROSE 5% MINI-B 100 ML IV SCH (22:10)
[2024-10-26 08:09] LABS: Calcium 8.2 mg/dl (8.6-10.3); Creatinine Clr Calc Pharmacy 52.4 ml/min; Magnesium 1.6 mg/dl (1.7-2.4); Potassium 3.7 mmol/L (3.5-5.1)
[2024-10-26 08:31] LABS: Hematocrit (blood only) 29.9 % (42.0-52.0); Hemoglobin 9.6 g/dl (14.0-18.0); Mean Corpuscular Hgb Conc 32.1 g/dL (32.0-36.0); Mean Corpuscular Volume 87.2 fL (80.0-100.0); Mean Platelet Volume 9.6 fL (9.4-12.4); Platelet Count 188 K/uL (130-400); RDW Coefficient of Variation 14.1 % (11.5-14.5); RDW Standard Deviation 44.5 fL (36.4-46.3); Red Blood Count 3.43 M/uL (4.70-6.10); White Blood Count 8.83 K/ul (4.8-10.8)
[2024-10-26] MEDS: MAGNESIUM SULFATE / D5W 1 GM/100 ML BAG IV ONE (09:08)
[2024-10-26] MEDS: MAGNESIUM OXIDE 400 MG TAB PO SCH (09:36)
--- NOTE | 2024-10-26 18:15 | Hospitalist Progress Note ---
Date of Service October 26, 2024 Assessment & Plan (1) Sepsis: (2) Pneumonia: (3) Hypomagnesemia: (4) Hypokalemia: (5) CKD (chronic kidney disease): (6) Anemia, mild: Plan 69-year-old man with Alonso's recent diagnosis of low-grade prostate cancer who awoke overnight with severe rigors/chills, evaluated in the ED found to have sepsis. previous day he had had some mild diarrhea without emesis, no other sick contact. Initially seemed like a viral syndrome however Respiratory bio fire negative and he did have some subtle abnormalities in right lower lobe on his chest x-ray without cough. Throughout the day he had persistent sepsis physiology and true fever, mild fluid responsive hypotension. Procalcitonin was normal on initial labs but on repeat several hours later significantly elevated at >4. on my exam he had coarse bibasilar crackles day of admission, which had cleared by hospital day 2. sepsis due to community-acquired pneumonia, right lower lobe. mild hypoxia 87% on room air in the ED, 94% on 2 L - improved a lot remains mildly hypotensive while on continuous normal saline - continue cefepime and doxycycline - follow blood cultures no growth at 24 hours, not producing sputum for culture - feels well enough for discharge but we need to see resolution of his hypotension and I would like to see his blood cultures negative at at least 48 hours Abnormal chest x-ray question of interstitial lung disease/fibrosis of right base and pulmonary edema based on chest x-ray - BNP was 56, I do not think he has pulmonary edema, no cardiac history and no other signs of symptoms of heart failure, monitor - he had bibasilar prominent crackles on his lung exam yesterday, however today his lungs are completely clear - he also has no symptoms of chronic lung disease such as chronic cough or dyspnea. would get a repeat two-view chest x-ray as an outpatient in 4 to 6 weeks, if abnormalities persist he should have a high-res chest CT severe hypomagnesemia, hypokalemia replaced and normalized, replaced mag of 1.6 today - a.m. BMP and mag - likely has chronic hypomag from PPI and triamterene/hydrochlorothiazide which he uses for Mnire's disease. started oral magnesium replacement anemia with B12 level of 554 on September 16 - check iron panel, reticulocyte count - we discussed follow-up with gastroenterology if he is indeed iron deficient. He has had a stool DNA test to screen for colon cancer but has never had endoscopies mild leukopenia due to sepsis- resolved white blood count normal today CKD stage III with creatinine at baseline - remains unchanged low-grade prostate cancer, prostatic hypertrophy - has urology follow-up scheduled. urinalysis was completely negative severe obstructive sleep apneacontinue CPAP DVT prophylaxissubcu heparin twice daily I updated his at bedside today Admission and Anticipated Discharge Date Admission Date: October 25, 2024 Subjective Edward says he feels great. No further diarrhea and no coughing/dyspnea. BP remains soft and is on continuous fluids still Physical Exam 2 Physical Exam: PHYSICAL EXAMINATION Last 24h vital signs reviewed, see documentation in flowsheet General: comfortable appearing, no distress HEENT: Normocephalic, atraumatic, pupils round and equal, sclerae anicteric, no conjunctival injection, moist mucus membranes Lungs: Normal respiratory effort. Clear to auscultation bilaterally. No RRW Heart: Regular rate and rhythm, no murmurs. No JVD Abdomen: Soft, nontender, nondistended. Bowel sounds present. Extremities: Warm, dry, well-perfused. No extremity edema. Neuro: Alert and oriented x 4, face symmetric, moves 4 extremities well Psych: Normal affect and behavior Results & Data Results & Data Vital Signs (Past 12 Hours) Vital Signs Temp Pulse Pulse Resp BP Pulse Ox O2 Del Method 10/26/24 14:31 98.2 F 64 16 123/75 96 Room Air 10/26/24 13:00 59 L 10/26/24 10:28 98.4 F 61 16 97/55 L 98 Room Air 10/26/24 07:08 55 L 10/26/24 06:57 98.2 F 54 L 16 91/53 L 95 Room Air Laboratory Results 10/26/24 08:15 10/26/24 07:25 PG Care Time/CCT Total # of Minutes Spent Total Time Spent with Patient: Total time spent is greater than 50% in coordination of care (as documented) at patient's floor/unit and/or counseling patient: Coding Level of Care Code 05028 SUB INP/OBS CARE 3/50MIN Diagnoses Sepsis A41.9 Pneumonia J18.9 Hypomagnesemia E83.42 Hypokalemia E87.6 CKD (chronic kidney disease) N18.9 Anemia, mild D64.9
[2024-10-26] MEDS: LORazepam 0.5 MG TAB PO PRN (23:15)
[2024-10-27 07:40] VITALS: PULSE 62; RESP 17; TEMP 98.2; O2SAT 99
[2024-10-27 07:44] LABS: BUN Creatinine Ratio 13.4 (10-20); Calcium 8.8 mg/dl (8.6-10.3); Creatinine Clr Calc Pharmacy 56.4 ml/min; Magnesium 1.7 mg/dl (1.7-2.4)
[2024-10-27 08:03] LABS: Ferritin 35.3 ng/ml (8-388)
[2024-10-27 09:38] VITALS: BP 109/64
--- NOTE | 2024-10-28 14:47 | Discharge Summary ---
Discharge Summary Date of Service October 28, 2024 Principal Dx & Hospital Course #1 = Principal Diagnosis (1) Sepsis: (2) Pneumonia: (3) Hypomagnesemia: (4) Hypokalemia: (5) CKD (chronic kidney disease): (6) Anemia, mild: Plan 69-year-old man with recent diagnosis of low-grade prostate cancer who awoke overnight with severe rigors/chills, evaluated in the ED found to have sepsis. previous day he had had some mild diarrhea without emesis, no other sick contact. No cough or dyspnea. Initially seemed like a viral syndrome however respiratory bio fire negative, had no further diarrhea. He did have some fairly subtle abnormalities in right lower lobe on his chest x-ray without cough. Throughout the day he had persistent sepsis physiology and true fever, mild but persistent fluid responsive hypotension. Procalcitonin was normal on initial labs but on repeat several hours later significantly elevated at >4. on my exam he had coarse bibasilar crackles day of admission, which had cleared by hospital day 2. # sepsis due to community-acquired pneumonia, right lower lobe. mild hypoxia 87% on room air in the ED, 94% on 2 L - took several days for hypotension to resolve, prazosin held while in hospital - treated with cefepime and doxycycline, fever and leukopenia resolved - follow blood cultures no growth at 72 hours, not producing sputum for culture - discharged on cefuroxime and doxycycline to complete 7 day course # Abnormal chest x-ray question of interstitial lung disease/fibrosis of right base and pulmonary edema based on chest x-ray - BNP was 56, I do not think he has pulmonary edema, no cardiac history and no other signs of symptoms of heart failure - he had bibasilar prominent crackles on his lung exam day of admissiom, however lung exam clear the following day - he also has no symptoms of chronic lung disease such as chronic cough or dyspnea. - recommend a repeat two-view chest x-ray as an outpatient in 4 to 6 weeks, if abnormalities persist he should have a high-res chest CT. I discussed this with Edward and his # severe hypomagnesemia, hypokalemia replaced and normalized - likely has chronic hypomag from PPI and triamterene/hydrochlorothiazide which he uses for Mnire's disease. started oral magnesium replacement anemia with B12 level of 554 on September 16 - iron panel with low normal iron stores, ferritin 74 so no inflammatory block. Started oral iron qod x 1 month - we discussed follow-up with gastroenterology for anemia. He has had a stool DNA test to screen for colon cancer but has never had endoscopies mild leukopenia due to sepsis- resolved white blood count normal CKD stage III with creatinine at baseline - remains unchanged low-grade prostate cancer, prostatic hypertrophy - has urology follow-up scheduled. urinalysis was completely negative severe obstructive sleep apneacontinue CPAP I updated his at bedside day of discharge Notes For Next Care Provider anemia - follow Hg and iron stores, consider gastroenterology referral or other further workup abnormal chest x-ray - possible interstitial disease, fibrosis R base. VS abnormalities related to pneumonia. Repeat CXR 4-6 weeks, high res chest CT if remaining abnormal admission blood cultures still pending Medication Changes From Visit added oral iron, magnesium supplement cefuroxime and doxycycline for pneumonia Admission HPI Per Admitting Provider This is a 69-year-old gentleman with past medical history of carpal tunnel, hypertension, CKD, prediabetic, prostate cancer who presented to the emergency department on 10/25/2024 with a chief complaint of chills, nausea, and weakness. While in the emergency department, patient appeared septic with hypotension, tachycardia. He was hypoxic with an oxygen saturation of 87% on room air. He had a low-grade fever along with leukopenia. His lactic acid, troponin, and procalcitonin were all within normal limits. UA and LFTs also with in normal limits. Chest x-ray with faint right lower lobe opacities, right lower lobe atelectasis and possible interstitial disease. BioFire negative. Patient improved with 2 L of IV fluids and had a dose of IV cefepime while in the emergency department. Patient was seen and examined this morning with his at bedside. Patient reports that overnight he awoke suddenly with chills. Patient's states that he seemed like his mental status was altered as well. Patient reports some nausea along with this. He states that he did not have any vomiting although he felt like he was going to. Prior to this event, he was experiencing some diarrhea yesterday. He denies any abdominal pain. He denies any chest pain, shortness of breath. He denies any urinary symptoms including frequency, urgency, or dysuria. Denies any lower extremity edema. He has been febrile since reporting to the ER however he states that his chills has subsided. He states that he does feel improved since reporting here. Discharge Exam PHYSICAL EXAMINATION Last 24h vital signs reviewed, see documentation in flowsheet General: comfortable appearing, no distress exam unchanged 10/27 HEENT: Normocephalic, atraumatic, pupils round and equal, sclerae anicteric, no conjunctival injection, moist mucus membranes Lungs: Normal respiratory effort. Clear to auscultation bilaterally. No RRW Heart: Regular rate and rhythm, no murmurs. No JVD Abdomen: Nondistended Extremities: Warm, dry, well-perfused. No extremity edema. Neuro: Alert and oriented x 4, face symmetric, moves 4 extremities well Psych: Normal affect and behavior Discharge Plan Discharge Items Patient Disposition: Home - Self-Care Reason For Visit: CHILLS, NAUSEA, WEAKNESS Discharge Diagnosis: Sepsis due to pneumonia Activity: Resume your previous activity Non-emergency contact: Primary Care Provider Call non-emergency contact if: you have any medication questions, your symptoms worsen and you have a fever Follow-up/Referrals: Anton Negron MD [Primary Care Provider] - 11/03/24 11:00 am (November 03, 11:00 am with Jolene Hess PA-C) Diet: Regular Addtl Attending Provider Instructions: You were treated for sepsis due to pneumonia You've responded well to treatment. Finish the course of oral antibiotics - cefuroxime and doxycycline. Blood cultures are negative at 48h, they take 5 days to finalize You're anemic, your iron stores are borderline low. B12 level has been normal to low normal historically, was 554 in August. Take ferrous sulfate every other day for about a month. This can cause constipation and dark stools - add a laxative if necessary. Talk to Dr. Negron to see if he thinks you should have a GI referral for endoscopies. a B-complex vitamin supplement would probably be a good idea. I think you have chronically low magnesium from some of your medications (omeprazole and triamterene-HCTZ). Try taking magnesium oxide 400 mg once a day, you can increase to twice a day if it is not causing diarrhea. If magnesium oxide causes diarrhea you can switch to "Slo Mag" or another extended- release magesium - these are less likely to cause diarrhea. I recommend a repeat chest x-ray in 4-6 weeks to make sure it clears. There were some right lower lobe abnormalities on admission CXR but it might be an over-call or related to the pneumonia. If CXR remains abnormal with concern for chronic lung disease (ILD or fibrosis) you should have a high resolution chest CT. Dr. Negron can help with this. It was a pleasure taking care of you in the hospital, Modesta Zamarripa MD Pending Studies at Discharge: Yes Stand-Alone Forms: My [facility], Smoking Cessation Medications and DC Order Prescriptions: New magnesium oxide 400 mg (241.3 mg magnesium) Tablet 400 mg PO BID Qty: 60 0RF Rx Instructions: start with once a day and increase to twice a day if no diarrhea ferrous sulfate 325 mg (65 mg iron) tablet 325 mg PO Q OTHER DAY Qty: 14 0RF doxycycline hyclate 100 mg capsule 100 mg PO BID Qty: 10 0RF cefuroxime axetil 500 mg tablet 500 mg PO BID Qty: 10 0RF Continued ibuprofen [Advil] 200 mg tablet 600 - 800 mg PO TID PRN (Reason: Pain) aspirin 81 mg tablet,delayed release (DR/EC) 81 mg PO QPM gabapentin 600 mg tablet 600 mg PO TID Qty: 270 3RF sildenafil 100 mg tablet 100 mg PO ONCE PRN (Reason: sexual activity) Qty: 30 3RF Rx Instructions: administer 30 minutes to 4 hours before activity terazosin 5 mg capsule 5 mg PO HS Qty: 90 3RF testosterone [AndroGel] 20.25 mg/1.25 gram (1.62 %) gel in metered-dose pump 2 pump topical DAILY Qty: 75 0RF Rx Instructions: apply 1 pump amount over max area of EACH upper arm and shoulder rosuvastatin 5 mg tablet 5 mg PO QPM Qty: 90 2RF lorazepam [Ativan] 0.5 mg tablet 0.5 mg PO DAILY PRN (Reason: anxiety) Qty: 30 1RF Rx Instructions: Ongoing therapy Supervising physician Anton EASON [id number] [facility] [id number] zolpidem [Ambien] 10 mg tablet 10 mg PO HS PRN (Reason: insomnia) Qty: 30 1RF Rx Instructions: Ongoing therapy Supervising physician Anton EASON [id number] [facility] [id number] triamterene-hydrochlorothiazid 37.5-25 mg capsule 1 cap PO QPM Qty: 90 3RF Held pantoprazole 40 mg tablet,delayed release (DR/EC) 40 mg PO QPM Qty: 90 3RF Hold Instructions: Resume on 11/02/24. hold while on antibiotic (cefuroxime) - interferes with absorption Discharge Orders: Discharge Order (Routine); Ordered 10/27/24 Ordered By: Modesta Zamarripa Admission Data Admit Date/Time: 10/25/24 08:36 Attending Provider: Modesta Zamarripa Admit Provider: Modesta Zamarripa Primary Care Provider: Anton Negron Other Providers: Modesta Zamarripa Other Interventions: Discharge Summary Assessment (RN) Last Done: 10/27/24 12:20 Hospital Stay Data Consultations 10/25/24 08:05 ED Decision to Admit Stat Pending Results Patient Have Any Pending Studies at Discharge: Yes Discharge Instructions Given to Patient (Per Discharging Provider) You were treated for sepsis due to pneumonia You've responded well to treatment. Finish the course of oral antibiotics - cefuroxime and doxycycline. Blood cultures are negative at 48h, they take 5 days to finalize You're anemic, your iron stores are borderline low. B12 level has been normal to low normal historically, was 554 in August. Take ferrous sulfate every other day for about a month. This can cause constipation and dark stools - add a laxative if necessary. Talk to Dr. Negron to see if he thinks you should have a GI referral for endoscopies. a B-complex vitamin supplement would probably be a good idea. I think you have chronically low magnesium from some of your medications (omeprazole and triamterene-HCTZ). Try taking magnesium oxide 400 mg once a day, you can increase to twice a day if it is not causing diarrhea. If magnesium oxide causes diarrhea you can switch to "Slo Mag" or another extended- release magesium - these are less likely to cause diarrhea. I recommend a repeat chest x-ray in 4-6 weeks to make sure it clears. There were some right lower lobe abnormalities on admission CXR but it might be an over-call or related to the pneumonia. If CXR remains abnormal with concern for chronic lung disease (ILD or fibrosis) you should have a high resolution chest CT. Dr. Negron can help with this. It was a pleasure taking care of you in the hospital, Modesta Zamarripa MD Total Time Total Time Spent Total Time Spent (In Minutes): I personally spent: 35 minutes today on clinical care activities including: reviewing chart notes and vital signs reviewing labs examining and counseling the patient counseling the patient's family writing prescriptions, discharge instructions documentation Coding Level of Care Code 50886 INP/OBS DISCH >30 MIN Diagnoses Sepsis A41.9 Pneumonia J18.9 Hypomagnesemia E83.42 Hypokalemia E87.6 CKD (chronic kidney disease) N18.9 Anemia, mild D64.9
== END 2024-10-27 13:09 | disposition home or self-care (01) | DRG 871 ==
LOC: ED 04:52 → 2N 08:36

== ENCOUNTER 2025-04-14 05:18 | Observation (INO) ==
--- NOTE | 2025-03-30 09:28 | PAT Medication Instructions ---
Medication Instructions Date of Service March 30, 2025 Home Medications Medication Instructions Recorded sildenafil 100 mg tablet 100 mg PO ONCE PRN sexual activity 01/15/24 #30 tabs terazosin 5 mg capsule 5 mg PO HS #90 caps 04/25/24 rosuvastatin 5 mg tablet 5 mg PO QPM #90 tabs 06/25/24 pantoprazole 40 mg tablet,delayed 40 mg PO QPM #90 tabs 09/29/24 release triamterene 37.5 1 cap PO QPM #90 caps 09/30/24 mg-hydrochlorothiazide 25 mg capsule magnesium oxide 400 mg (241.3 mg 400 mg PO BID #60 tabs 12/02/24 magnesium) tablet gabapentin 600 mg tablet 600 mg PO TID #270 tabs 12/03/24 testosterone (AndroGel) 2 pump topical DAILY #75 grams 12/29/24 ferrous sulfate 325 mg (65 mg 325 mg PO Q OTHER DAY #30 tabs 02/25/25 iron) tablet zolpidem 10 mg tablet (Ambien) 10 mg PO HS PRN insomnia #30 tabs 02/25/25 lorazepam 0.5 mg tablet (Ativan) 0.5 mg PO DAILY PRN anxiety #30 02/26/25 tabs meloxicam 15 mg tablet 15 mg PO DAILY #30 tabs 03/04/25 aspirin 81 mg tablet,delayed release 81 mg PO QPM sildenafil 100 mg tablet 100 mg PO ONCE PRN terazosin 5 mg capsule 5 mg PO HS rosuvastatin 5 mg tablet 5 mg PO QPM pantoprazole 40 mg tablet,delayed release 40 mg PO QPM triamterene 37.5 mg-hydrochlorothiazide 25 mg capsule 1 cap PO QPM magnesium oxide 400 mg (241.3 mg magnesium) tablet 400 mg PO BID gabapentin 600 mg tablet 600 mg PO TID testosterone (AndroGel) 2 pump topical DAILY ferrous sulfate 325 mg (65 mg iron) tablet 325 mg PO Q OTHER DAY zolpidem 10 mg tablet (Ambien) 10 mg PO HS PRN lorazepam 0.5 mg tablet (Ativan) 0.5 mg PO DAILY PRN meloxicam 15 mg tablet 15 mg PO DAILY Continue as directed lorazepam 0.5 mg tablet (Ativan) 0.5 mg PO DAILY PRN(if needed) ASK your surgeon for instructions meloxicam 15 mg tablet 15 mg PO DAILY ASK your prescriber and surgeon aspirin 81 mg tablet,delayed release 81 mg PO QPM STOP taking 24 hours before surgery testosterone (AndroGel) 2 pump topical DAILY DO NOT take the morning of surgery sildenafil 100 mg tablet 100 mg PO ONCE PRN magnesium oxide 400 mg (241.3 mg magnesium) tablet 400 mg PO BID ferrous sulfate 325 mg (65 mg iron) tablet 325 mg PO Q OTHER DAY Take morning of surgery With a small sip of water, OTHERWISE NOTHING TO EAT OR DRINK AFTER MIDNIGHT: gabapentin 600 mg tablet 600 mg PO TID Take evening before surgery terazosin 5 mg capsule 5 mg PO HS rosuvastatin 5 mg tablet 5 mg PO QPM pantoprazole 40 mg tablet,delayed release 40 mg PO QPM triamterene 37.5 mg-hydrochlorothiazide 25 mg capsule 1 cap PO QPM magnesium oxide 400 mg (241.3 mg magnesium) tablet 400 mg PO BID gabapentin 600 mg tablet 600 mg PO TID zolpidem 10 mg tablet (Ambien) 10 mg PO HS PRN(if needed) Other Notes If you have any questions please call us at [phone] or [phone] or [phone] or [phone]
--- NOTE | 2025-04-02 12:08 | Anesthesiology Consultation ---
Date of Service April 02, 2025 Assessment & Plan (1) Encounter for pre-operative examination: - Infectious disease screening: Per assessment on 04/02/25- No known recent infectious disease contacts or current infectious disease symptoms. - Outpatient joint assessment: Pt currently scheduled for inpatient pathway. If surgeon requests review for outpatient joint pathway, patient is not recommended candidate for outpatient joint program from anesthesia standpoint based on available information. Chart Review Chart Review: Acceptable Risk for Surgery and Patient seen in Pre Admission Te sting Teaching & Discussion Pre-Anesthesia Teaching/Discussion Notes: Instructed NPO after midnight before surgery,except medications with 15 cc of water. Medication instructions provided according to the PAT guidelines. History Surgery Operation Date: 04/14/25 12:40 Proposed Procedures p Right Total Hip Arthroplasty - Nba Parker MD Height/Weight Height: 5 ft 10 in Weight: 100.4 kg Allergies Allergy/AdvReac Type Severity Reaction Status Date / Time simvastatin AdvReac Unknown Muscle Verified 03/30/25 14:04 soreness Medications Home Medications Medication Instructions Recorded Confirmed Last Taken aspirin 81 mg tablet,delayed 81 mg PO QPM 07/22/20 03/27/25 10/24/24 release sildenafil 100 mg tablet 100 mg PO ONCE PRN sexual activity 01/15/24 03/27/25 Unknown #30 tabs terazosin 5 mg capsule 5 mg PO HS #90 caps 04/25/24 03/27/25 10/24/24 rosuvastatin 5 mg tablet 5 mg PO QPM #90 tabs 06/25/24 03/27/25 10/24/24 pantoprazole 40 mg tablet,delayed 40 mg PO QPM #90 tabs 09/29/24 03/27/25 10/24/24 release triamterene 37.5 1 cap PO QPM #90 caps 09/30/24 03/27/25 10/24/24 mg-hydrochlorothiazide 25 mg capsule magnesium oxide 400 mg (241.3 mg 400 mg PO BID #60 tabs 12/02/24 03/27/25 U nknown magnesium) tablet gabapentin 600 mg tablet 600 mg PO TID #270 tabs 12/03/24 03/27/25 Unknown testosterone (AndroGel) 2 pump topical DAILY #75 grams 12/29/24 03/27/25 Unknown ferrous sulfate 325 mg (65 mg 325 mg PO Q OTHER DAY #30 tabs 02/25/25 03/27/25 Unknown iron) tablet zolpidem 10 mg tablet (Ambien) 10 mg PO HS PRN insomnia #30 tabs 02/25/25 03/27/25 Unknown lorazepam 0.5 mg tablet (Ativan) 0.5 mg PO DAILY PRN anxiety #30 02/26/25 03/27/25 Unknown tabs meloxicam 15 mg tablet 15 mg PO DAILY #30 tabs 03/04/25 03/27/25 Unknown Past Medical History Medical History Anemia, mild BPH (benign prostatic hyperplasia) Dyslipidemia GERD (gastroesophageal reflux disease) History of prediabetes History of prostate cancer Dx 2023, being monitored Hx of bursitis Left hip, [place] [facility] for injections Hx of chronic kidney disease "stable for years" Hx of insomnia Lumbar disc herniation Hx Menieres disease Nerve pain Left leg Obstructive sleep apnea hypopnea, severe Remote hx device "years ago" Subsequent 80 pound weight loss/no current device, no formal retesting Sensorineural hearing loss of both ears "Mild" Testicular hypofunction Tinnitus, bilateral Varicose veins of both lower extremities Exercise / Class Metabolic Activity II 4-5 Yardwork/Stairs/Walk up hill Past Family History Family History Grandmother (Maternal) Myocardial infarction Diabetes Congestive heart failure Heart disease Hypertension Grandfather (Maternal) Myocardial infarction Congestive heart failure Mother , 77yo Myocardial infarction Diabetes Stroke Hypertension Heart disease S/P CABG x 3 H/O heart artery stent Brother Myocardial infarction Diabetes Heart disease Hypertension Father , 84yo Bladder cancer History of heart valve replacement Brother No problems noted. Sister Thyroid disease Long COVID Daughter No problems noted. Daughter , 27yo Sleep apnea Obesity Prediabetes PCOS (polycystic ovarian syndrome) Other No family history of adverse response to anesthesia No family history of bleeding disorder Denies family history of Ovarian cancer Prostate cancer Breast cancer Colorectal cancer Past Surgical History Surgical History H/O oral surgery H/O: vasectomy History of cardiac cath ~20 years ago- no stents History of lumbar discectomy (1984) low back History of lumbar surgery 10+ years ago, + hardware History of toe surgery Right foot 2nd hammertoe correction (04/18/23): [place] at [facility] [place] History of total left hip arthroplasty Left ELISSA (01/23/18): SAB at L3-4 at [facility], scope patch used. No issues noted per post-op anesthesia progress note. History of vascular surgery Varicose vein ablation, [place] Second procedure for ligation, [place] S/P cataract surgery R/L Past Anesthesia History No Hx of Anesthesia Complications and No Family Hx of Anesthesia Complications History of PONV No Hx of PONV and No Hx of Motion Sickness Social History Smoking Status: Never smoker Do You Dip or Chew Tobacco: No Hx Alcohol Use: Yes Alcohol type: hard liquor alcohol intake frequency: other (1-2 drinks/week) Hx Substance Use: No substance use type: does not use Review of Systems Patient denies chest pain, shortness of breath, dyspnea on exertion, fever, chills, cough, wheezing, palpitations. Physical Exam Vital Signs BP 110/68 P 67 TEMP 98.2 SP02 97%RA RESP 16 Physical Full cervical extension range of motion. Full TMJ range of motion. TMD > 3.5 finger breaths Mallampati Score II Dentition: intact, upper/lower bridges Lungs: clear throughout to auscultation Cardiac: regular rate and rhythm, no murmurs noted Spine: normal Carotid arteries: negative bruit Extremities: no LE edema Lab Results Anesthesia Preop Results Results Anesthesia Widget: WBC 9.73 K/ul (4.8-10.8) 04/02/25 Hgb 14.0 g/dl (14.0-18.0) 04/02/25 Hct 40.8 % (42.0-52.0) L 04/02/25 Plt 283 K/uL (130-400) 04/02/25 Na 137 mmol/L (136-145) 04/02/25 K 4.3 mmol/L (3.5-5.1) 04/02/25 Cl 102 mmol/L (98-107) 04/02/25 CO2 29 mmol/L (21-32) 04/02/25 BUN 42 mg/dl (6-23) H 04/02/25 Creat 1.54 mg/dl (0.6-1.4) H 04/02/25 Glucose Level 98 mg/dl (70-99(Fasting)) 04/02/25 PT 10.4 Seconds (9.0-12.0) 04/02/25 PTT 28 Seconds (21-31) 04/02/25 INR 1.0 (0.9-1.1) 04/02/25 Blood Type A Positive 04/02/25 Antibody Screen NEGATIVE 04/02/25 Testing Electrocardiogram Date: 04/02/25 NSR at 61bpm. "Normal ECG" Chest X-Ray Date: 12/01/24 FINDINGS: Cardiac mediastinal and hilar silhouettes are unchanged. Mild chronic bilateral interstitial coarsening. No pneumothorax, pleural effusion or lobar airspace consolidation. Bones appear grossly intact. Lumbar spinal fusion hardware. IMPRESSION: No acute process.
[2025-04-14] MEDS: LR 60ML/HR IV SCH (05:58)
[2025-04-14] MEDS: LR 500ML BOLUS, THEN 15ML/HR IV SCH (05:58)
[2025-04-14] MEDS: FAMOTIDINE 20 MG TAB PO SCH (05:59)
[2025-04-14] MEDS: METOCLOPRAMIDE HCL 10 MG TABLET PO SCH (05:59)
[2025-04-14] MEDS: CeleBREX 200 MG CAP PO SCH (05:59)
[2025-04-14] MEDS: ACETAMINOPHEN 500 MG TAB PO SCH ×2 (05:59→10:56)
[2025-04-14] MEDS: dexAMETHasone**PF** 10 MG/ML VIAL IV SCH (05:59)
[2025-04-14] MEDS ORDERED: BUPIVACAINE 0.5 % 5 MG/1 ML PF 10ML VIAL ONE (06:29)
[2025-04-14] MEDS ORDERED: PROPOFOL IV EMULSION 10 MG/ML 20 ML VIAL IV ONE ×3 (06:32→08:13)
[2025-04-14] MEDS ORDERED: MIDAZOLAM HCL 1 MG/ML 2ML VIAL ONE (06:33)
--- NOTE | 2025-04-14 06:44 | History & Physical Bridge Note ---
Date of Service April 14, 2025 History & Physical Bridge Note I have examined the patient, reviewed the History & Physical and in the interval since the performance of the History & Physical I have noted the following changes of clinical significance: no changes noted
[2025-04-14] MEDS: TRANEXAMIC ACID 1,000 MG **IV Pre-op IV SCH (06:46)
[2025-04-14] MEDS ORDERED: ePHEDrine sulfate 50 MG/5 ML SYR ONE (07:15)
[2025-04-14] MEDS ORDERED: PHENYLEPHRINE 100MCG/ML 5ML SYR ONE ×2 (07:15→07:58)
[2025-04-14] MEDS: BUPIVACAINE/EPINEPHRINE 0.5% MPF 1:200,000 30 ML VIAL ONE ×2 (07:44→07:45)
[2025-04-14] MEDS ORDERED: ONDANSETRON INJ 2 MG/ML 2 ML VIAL ONE (07:57)
--- NOTE | 2025-04-14 08:46 | Operative Report ---
PG Post Operative Report Pre & Post Diagnosis Operation Date: 04/14/25 07:00 Pre-Op Diagnosis: Right Hip Osteoarthritis Post-Op Diagnosis: Right Hip Osteoarthritis I identified the patient and participated in the time-out.: Yes Procedure Operation Date: 04/14/25 07:00 Actual Procedures p Right Total Hip Arthroplasty(Right) - Nba Parker MD Surgeon Nba Parker MD Team Cdl Driver Manny Reese PA-C Estimated Blood Loss 100 Findings Consistent with Post-Op Diagnosis Specimens Right femoral head sent for pathology. Anesthesia Type Spinal MAC Complications none Disposition Accompanied Patient To Recovery: No Indications The patient is a 69-year-old gentleman who has a long history of hip problems in the past. He had his left hip replaced 7 years ago. Over the past couple years he has developed increased pain discomfort right hip. Failed conservative measures. X-rays show progressive and advanced right hip arthritis. He elected proceed with surgical treatment. Description of Procedure Operative implants consists of: 1 Biomet G7 size 54 mm acetabular shell. 2. 6.5 cancellous acetabular screws 1 of 35 mm length and 1 to 30 mm length. 3. [place] hole server support technician. 4. Highly cross-linked polyethylene liner with a 54 mm outer diameter and 36 mm diameter. 5. DePuy Karaya size 13 KLA femoral stem. 6. +5/36 mm ceramic articular ball. The patient was taken to the op room, identified, placed on the operating table in the supine position. All conductors were appropriately padded. IV antibiotics were provided by the anesthesia team. A spinal anesthetic had been implemented holding area. The patient was then placed in the left lateral cubitus position. An axillary roll was placed. A stool Birkett position was used for positioning. The patient also got tranexamic acid preoperatively. The right hip and leg were then prepped and draped in usual sterile fashion. A posterolateral approach to the right hip was then performed to a curvilinear incision centered over the greater trochanter. Sharp dissection was got through subcutaneous tissue down to level of the IT band gluteal fascia. The IT band gluteal fascia was sized longitudinally in line with skin incision. The underlying greater bursa was excised. The piriformis and external rotators along with the posterior hip joint capsule were then released from the posterior aspect of the hip as a single layer. Great care was taken throughout the procedure protect the sciatic nerve at all times. The hip was then internally rotated and dislocated. A femoral neck osteotomy cut was made with Final Cut about 14 mm above the lesser trochanter. The femoral head was removed and sent for pathology. The femur was retracted anteriorly. Attention then drawn the acetabulum. The acetabular labrum was excised. The pulmonary fat was excised. Sequential reaming of the acetabulum was then performed again with a size 45 and progressing up to 53. I reamed a little bit with a 54 reamer and then placed a 54 mm Biomet acetabular cup in about 4 degrees lateral opening and 20 degrees of anteversion. It was fixed with two 6.5 screws. A trial liner was placed. Attention drawn the femur. The proximal femur was entered with a [employer] cutter followed by canal finder. I then broached beginning with a size 8 and progressing up to a 13. Got excellent fitted at 13. Did not feel comfortable with to get the 14 down. We trialed the hip and the +5 articular ball provide equal leg lengths, appropriate soft tissue tension it was fully stable in full extension and external rotation and flexion to 90 degrees internal rotation over [address] these implants. All trial implants were removed. An apex hole server support technician was placed. Highly cross-linked polyethylene liner was placed. A size 13 KLA femoral stem was impacted in position. A +5/36 mm ceramic articular ball was placed. Hip was located and once again found to be stable. Attention was drawn toward closing. The wound was irrigated extensively. I did inject locally with 60 cc of half percent Marcaine with epinephrine. The posterior capsule and external rotators were then repaired through drill holes in the posterior trochanter with #2 Tycron suture. The IT band gluteal fascia then closed in 1 PDS suture running fashion the subcutaneous tissue then closed with 2 layers of the deep layer #1 Vicryl suture in the subcutaneous tissues with 2-0 Dexon suture in a buried interrupted fashion. The skin was closed skin kim. Leg was then cleaned and dried and a sterile dressing with Xeroform, 4 x 4's, ABD pad and foam tape was applied. The patient was then transferred to the recovery room in stable condition. The patient tolerated the procedure well and there were no complications. Manny Reese, my physician assistant athletic trainer, was present for the entire procedure. His assistance was required for proper patient positioning, prepping and draping, surgical exposure, retraction, perform the technical details of the operation, placement of the implants, closure of the incision site, and placement of postoperative sterile bandage. I attest to the content of the Intraoperative Record and any orders documented therein. Any exceptions are noted below.
--- NOTE | 2025-04-14 09:04 | XRay Report ---
XR hip 1V RT w pelvis CLINICAL HISTORY: IN PACU - Post Surgical COMPARISON: 03/04/2025 FINDINGS: Bilateral hip prostheses show no hardware complication. There is expected soft tissue gas on the right and skin kim are present. IMPRESSION: Unremarkable postoperative exam. ACT 112: Negative or not required by law. Electronically signed by: Harlan Granado M.D. 04/14/2025 9:03 AM
--- NOTE | 2025-04-14 09:33 | Anesthesiology Progress Note ---
Date of Service April 14, 2025 Anesthesia Post Procedure Vital Signs Vital Signs: Temp Pulse Pulse Resp BP Pulse Ox O2 Del Method 04/14/25 09:24 62 14 100/55 L 94 Room Air 04/14/25 09:15 61 16 98/52 L 94 Room Air 04/14/25 09:05 63 14 105/53 L 95 Room Air 04/14/25 08:55 67 18 95/55 L 94 Room Air 04/14/25 08:45 74 20 111/55 L 97 Room Air 04/14/25 08:35 36.3 C L 68 16 99/50 L 99 Oxymask 04/14/25 05:38 36.6 C 61 16 112/74 96 Room Air O2 Flow Rate 04/14/25 09:24 04/14/25 09:15 04/14/25 09:05 04/14/25 08:55 04/14/25 08:45 04/14/25 08:35 6 04/14/25 05:38 Pain Intensity Right Hip: Pain Intensity: 3 Transfer of Care Handoff Completed per policy Notes Mental Status: alert / awake / arousable and participated in evaluation Patient Amnestic to Procedure: Yes Nausea / Vomiting: adequately controlled Pain: adequately controlled Airway Patency, RR, SpO2: stable & adequate BP & HR: stable & adequate Hydration State: stable & adequate Anesthetic Complications: no major complications apparent
[2025-04-14] MEDS ORDERED: ONDANSETRON INJ 2 MG/ML 2 ML VIAL IV PRN (09:56)
[2025-04-14] MEDS ORDERED: ALUMINUM/MAGNESIUM SUSP 30 ML UDC PO PRN (09:56)
[2025-04-14] MEDS ORDERED: LORazepam 0.5 MG TAB PO PRN (09:56)
[2025-04-14] MEDS ORDERED: NALOXONE HCL 0.4 MG/1 ML VIAL/CARP IV PRN (09:56)
[2025-04-14] MEDS ORDERED: METOCLOPRAMIDE HCL INJ 5 MG/ML 2 ML VIAL IV PRN (09:56)
[2025-04-14] MEDS ORDERED: MAGNESIUM HYDROXIDE SUSP 30 ML UDC PO PRN (09:56)
[2025-04-14] MEDS ORDERED: NO NSAIDS SCH (09:56)
[2025-04-14] MEDS: GABAPENTIN 600 MG TAB PO SCH (10:52)
[2025-04-14] MEDS: ASPIRIN 81 MG ECTAB PO SCH (10:52)
[2025-04-14] MEDS: MAGNESIUM OXIDE 400 MG TAB PO SCH (10:52)
[2025-04-14] MEDS: TAMSULOSIN HCL 0.4 MG CAP PO SCH (10:52)
[2025-04-14] MEDS: MULTIVITAMIN TAB PO SCH (10:53)
[2025-04-14] MEDS: FERROUS SULFATE 325 MG TAB PO SCH (10:53)
[2025-04-14] MEDS: SENNA 8.6 MG TAB PO SCH ×2 (10:56→21:45)
[2025-04-14] MEDS: DOCUSATE SODIUM 100 MG CAP PO SCH (10:56)
[2025-04-14] MEDS: SODIUM CHLORIDE 0.9% 1,000 ML IV SCH (12:27)
[2025-04-14] MEDS: SODIUM CHLORIDE 0.9% 500 ML IV ONE (12:46)
[2025-04-14] MEDS: SODIUM CHLORIDE 0.9% 1,000 ML IV ONE (14:16)
[2025-04-14] MEDS: TRANEXAMIC ACID / 0.7% NACL 1,000 MG/100 ML BAG IV SCH (14:17)
[2025-04-14] MEDS: ASCORBIC ACID 500 MG TAB PO SCH (16:41)
[2025-04-14] MEDS: HYDROmorphone INJ 0.5 MG/0.5 ML SYR IV PRN (21:43)
[2025-04-14] MEDS: TERAZOSIN HCL 5 MG CAP PO SCH (21:44)
[2025-04-14] MEDS: TRIAMTERENE/HCTZ 37.5/25MG TAB PO SCH (21:46)
[2025-04-14] MEDS: ROSUVASTATIN CALCIUM 5 MG TAB PO SCH (21:46)
[2025-04-14] MEDS: ZOLPIDEM TARTRATE 5 MG TAB PO PRN (21:47)
[2025-04-14 23:12] VITALS: RESP 16
[2025-04-15 03:03] VITALS: TEMP 98.4
[2025-04-15 07:13] VITALS: PULSE 57; O2SAT 92
[2025-04-15 07:13] LABS: Hematocrit (blood only) 33.7 % (42.0-52.0); Hemoglobin 11.3 g/dl (14.0-18.0); Immature Granulocytes # (auto) 0.06 K/uL (0.01-0.20); Immature Granulocytes % (auto) 0.5 %; Mean Corpuscular Hemoglobin 29.9 pg (25.0-34.0); Mean Corpuscular Volume 89.2 fL (80.0-100.0); Platelet Count 247 K/uL (130-400); RDW Standard Deviation 41.7 fL (36.4-46.3); Red Blood Count 3.78 M/uL (4.70-6.10); White Blood Count 11.97 K/ul (4.8-10.8)
[2025-04-15 07:30] LABS: Anion Gap 8.0 (3-11); Blood Urea Nitrogen 29.0 mg/dl (6-23); Calcium 8.6 mg/dl (8.6-10.3); Carbon Dioxide 26.0 mmol/L (21-32); Chloride 105.0 mmol/L (98-107); Creatinine Clr Calc Pharmacy 55.7 ml/min; Glucose 103.0 mg/dl (70-99(Fasting)); Potassium 4.1 mmol/L (3.5-5.1); Sodium 139.0 mmol/L (136-145)
[2025-04-15] MEDS: dexAMETHasone 10 MG in SYRINGE 0 ML IV SCH (07:53)
[2025-04-15 08:00] VITALS: BP 100/57
--- NOTE | 2025-04-15 08:26 | Orthopedic Progress Note ---
Date of Service April 15, 2025 Assessment & Plan (1) S/P total right hip arthroplasty: * Continue Current Treatment * Disposition: home * Daily treatment: Physical Therapy/ Occupational Therapy per protocol * Weight bearing status: WBAT, precautions * Continue to monitor for ABLA * Pain control * Hypotension, s/p bolus. Asymptomatic. * DVT prophylaxis, ASA * Office/hospital f/u 2 weeks for progress check and staple/suture removal * Plan for discharge today pending PT/OT clearance Subjective . Active Problems: S/p right ELISSA POD 1 69 y/o male s/p right ELISSA. Doing well overall, pain managed and improved function. Hypotensive post surgery, s/p fluid bolus without improvement, but denies sympomts includine dizziness, lightheadedness. Denies fever/chills, chest pain/SOB, nausea/vomiting. Otherwise no complaints. Review of Systems All systems reviewed & are unremarkable except as noted in HPI & below. Physical Exam . * General: Alert and oriented, no acute distress * Constitutional: well-developed, well-nourished. * Respiratory: Normal respiratory effort, no distress * Gastrointestinal: No tenderness to palpation, no rigidity or guarding. * Skin: No rash or lesion. * Neurologic: Grossly normal * Musculoskeletal: Right hip surgical dressing CDI, not removed for exam. Otherwise no obvious deformity or overlying skin changes. Diffuse TTP proximal thigh and hip region. Otherwise no specific tenderness of distal thigh, lower leg, foot/ankle. AROM hip flexion intact. AROM foot/ankle intact. Sensation intact plantar/dorsal foot. Brisk capillary refill. Results & Data Results & Data Laboratory Results . Diagnostic Findings . PG Care Time/CCT Total # of Minutes Spent Total Time Spent with Patient: Total time spent is greater than 50% in coordination of care (as documented) at patient's floor/unit and/or counseling patient: Coding Level of Care Code 44697 Post Operative Follow-Up Diagnoses S/P total right hip arthroplasty Z96.641
== END 2025-04-15 11:06 | disposition home health service (06) ==
LOC: ASU 05:18 → 3E 05:18